=== PATIENT | female | born 1975 | race Caucasian/White ===

== ENCOUNTER 2016-12-15 15:53 | Emergency (ER) | payer BC ==
[2016-12-15 17:08] VITALS: BP 156/98
--- NOTE | 2016-12-15 17:19 | UC ---
Lower Extremity/Ankle HPI - HPI Summary HPI Summary: son stepped on here right foot yesterday - History of Current Complaint Chief Complaint: UCLowerExtremity Stated Complaint: RT FOOT INJURY Time Seen by Provider: 12/15/16 17:13 Hx Obtained From: Patient Hx Last Menstrual Period: november ?: No Onset/Duration: Sudden Onset, Lasting Days - 1, Still Present Severity Initially: Moderate Severity Currently: Moderate Pain Intensity: 6 Pain Scale Used: 0-10 Numeric Aggravating Factor(s): Standing, Ambulation Alleviating Factor(s): Rest, Elevation Able to Bear Weight: Yes - Allergies/Home Medications Allergies/Adverse Reactions: Allergies Allergy/AdvReac Type Severity Reaction Status Date / Time Adhesive Tape Allergy Severe Blisters Verified 12/15/16 16:21 Ampicillin Allergy Severe Rash Verified 12/15/16 16:21 Azithromycin Allergy Unknown Unknown Verified 12/15/16 16:21 Reaction Details Latex Allergy Unknown Hives Verified 12/15/16 16:21 Levofloxacin Allergy Unknown Hives Verified 12/15/16 16:21 Penicillins Allergy Unknown Unknown Verified 12/15/16 16:21 Reaction Details Chlorhexidine Allergy Blisters Verified 12/15/16 16:21 CHLOROPREP Allergy Severe Blisters Uncoded 12/15/16 16:21 Home Medications: Home Medications Levothyroxine Sodium [Levoxyl] 75 mcg PO 12/15/16 [History] PMH/Surg Hx/FS Hx/Imm Hx Previously Healthy: No Endocrine History Of: Reports: Thyroid Disease Denies: Diabetes Cardiovascular History Of: Denies: Hypertension, Pacemaker/ICD Respiratory History Of: Reports: Asthma - SEASONAL GI/ History Of: Denies: Ulcer - Surgical History Surgical History: Yes Surgery Procedure, Year, and Place: RIGHT CHEST PORT, , KNEE SURGERY, FOOT SURGERY A CHILD - Family History Known Family History: Positive: None Family History: no reported cardiovascular issues in family lineage - Social History Occupation: Employed Full-time Lives: With Family Alcohol Use: None Substance Use Type: None Smoking Status (MU): Never Smoked Tobacco Review of Systems Constitutional: Negative Skin: Negative Eyes: Negative ENT: Negative Respiratory: Negative Cardiovascular: Negative Gastrointestinal: Negative Genitourinary: Negative Motor: Negative Neurovascular: Negative Musculoskeletal: Negative, Arthralgia - medial right foot Neurological: Negative Psychological: Negative All Other Systems Reviewed And Are Negative: Yes Physical Exam Triage Information Reviewed: Yes Appearance: Well-Appearing, No Pain Distress, Obese Vital Signs: Initial Vital Signs Temp 97.6 F 12/15/16 16:07 Pulse 95 12/15/16 16:07 Resp 16 12/15/16 16:07 BP 156/117 12/15/16 16:07 Pulse Ox 98 12/15/16 16:07 Vital Signs Reviewed: Yes Eye Exam: Normal Eyes: Positive: Conjunctiva Clear ENT Exam: Normal ENT: Positive: Normal ENT inspection, Hearing grossly normal. Negative: Trismus , Muffled/hoarse voice Dental Exam: Normal Neck exam: Normal Neck: Positive: Supple, Nontender Respiratory Exam: Normal Respiratory: Positive: Chest non-tender, No respiratory distress, No accessory muscle use Cardiovascular Exam: Normal Cardiovascular: Positive: RRR, Pulses Normal, Brisk Capillary Refill Musculoskeletal Exam: Normal Musculoskeletal: Positive: Strength Intact, ROM Intact, No Edema Neurological Exam: Normal Neurological: Positive: Alert, Muscle Tone Normal, Fatigued Psychological Exam: Normal Skin Exam: Normal Diagnostics - Radiology No standard instances Xray Interpretation: No Acute Changes Radiology Interpretation Completed By: Radiologist Lower Extremity Course/Dx - Course Course Of Treatment: post op shoe/cam boot for comfort, jorge luis, rice, ibuprofen, follow with ortho mid next week - Differential Dx/Diagnosis Differential Diagnosis/HQI/PQRI: Arthritis, Contusion, Fracture (Closed), Sprain , Strain Provider Diagnoses: Contusion right foot Discharge - Discharge Plan Condition: Stable Disposition: HOME Patient Education Materials: Ibuprofen (By mouth), Foot Contusion (ED), DASH Eating Plan (ED), Hypertension (ED), RICE Therapy (ED) Referrals: Geneva Villanueva MD [Primary Care Provider] - 2 Weeks (bp recheck) Radha Kraft MD [Medical Doctor] - 1 Week
--- NOTE | 2016-12-15 17:50 | RAD ---
HISTORY: Left, COMPARISONS: October 17, 2011 VIEWS: 3, Frontal, lateral, and oblique views of the right foot FINDINGS: BONE DENSITY: Normal. BONES: There is no displaced fracture. There are small calcaneal enthesophytes. There is a stable bone island of the fifth metatarsal. JOINTS: There is no arthropathy. ALIGNMENT: There is no dislocation. SOFT TISSUES: There is soft tissue swelling of the dorsum of the midfoot OTHER FINDINGS: None. IMPRESSION: SOFT TISSUE SWELLING. NO ACUTE OSSEOUS INJURY. IF SYMPTOMS PERSIST, RECOMMEND REPEAT IMAGING.
== END 2016-12-15 18:20 | disposition home or self-care (01) ==
LOC: UCEAST 15:53
DX: S90.31XA Contusion of right foot, initial encounter (principal); E07.9 Disorder of thyroid, unspecified; I10 Essential (primary) hypertension; J45.998 Other asthma; Z88.0 Allergy status to penicillin; Z88.3 Allergy status to other anti-infective agents; Z91.040 Latex allergy status; Z95.810 Presence of automatic (implantable) cardiac defibrillator; W50.0XXA Accidental hit or strike by another person, initial encounter
CPT/HCPCS: 99212; G0463

== ENCOUNTER 2017-03-04 19:37 | Emergency (ER) | payer BC ==
[2017-03-04] MEDS ORDERED: methylPREDNISolone 125 MG* 2 ML VIAL IV ONE (20:06)
[2017-03-04] MEDS ORDERED: Albuterol/Ipratropium NEB.SOL* Albuterol 2.5 MG/Ipratropium 0.5 MG 3 ML INH ONE ×3 (20:06→20:45)
[2017-03-04 20:25] LABS: Hematocrit 40 % (35-47); Hemoglobin 12.2 g/dl (12.0-16.0); Mean Corpuscular HGB Conc 31 g/dl (31-36); Mean Corpuscular Hemoglobin 26 pg (27-31); Mean Corpuscular Volume 83 fL (80-97); Mean Platelet Volume 9 um3 (7.4-10.4); Red Blood Count 4.79 10^6/ul (4.0-5.4); Red Cell Distribution Width 18 % (10.5-15); White Blood Count 15.1 10^3/ul (3.5-10.8)
[2017-03-04 20:27] LABS: Comments Flag Yes
[2017-03-04] MEDS ORDERED: Albuterol/Ipratropium NEB.SOL* Albuterol 2.5 MG/Ipratropium 0.5 MG 3 ML ONE ×2 (20:39→20:42)
[2017-03-04 20:40] LABS: ALT 24 U/L (7-52); AST 15 U/L (13-39); Albumin 3.8 g/dL (3.2-5.2); Alkaline Phosphatase 92 U/L (34-104); Anion Gap 7 mmol/L (2-11); BUN/Creatinine Ratio 26.6 (8-20); Blood Urea Nitrogen 17 mg/dL (6-24); C Reactive Protein 49.83 mg/L (< 5.00); CO2 Carbon Dioxide 27 mmol/L (22-32); Calcium 9.1 mg/dL (8.6-10.3); Chloride 103 mmol/L (101-111); Creatine Kinase 15 U/L (10-223); EGFR African American 130.2 (>60); EGFR Non-African American 101.3 (>60); Globulin 3.5 g/dL (2-4); Glucose 137 mg/dL (70-100); Lipase 13 U/L (11.0-82.0); Magnesium 1.9 mg/dL (1.9-2.7); Potassium 3.8 mmol/L (3.5-5.0); Sodium 137 mmol/L (133-145); Total Protein 7.3 g/dL (6.4-8.9)
[2017-03-04 20:44] LABS: Troponin I 0.01 ng/mL (<0.04)
--- NOTE | 2017-03-04 21:04 | RAD ---
INDICATION: Shortness of breath and cough. COMPARISON: Most recent comparison chest x-rays dated February 21, 2013 TECHNIQUE: Single AP portable view of the chest was obtained. FINDINGS: Image quality is compromised due to the relative inferiority of a portable chest x-ray. There is a right subclavian vein Mediport with the tip terminating at the upper SVC similar to the previous chest x-ray. The heart and mediastinum exhibit normal size and contour. The lungs are grossly clear. There is no evidence of a large pleural effusion. Visualized bones are normal for the patient's age. IMPRESSION: No radiographic evidence for acute cardiopulmonary abnormality on this portable chest x-ray.
[2017-03-04 21:12] LABS: TSH (Thyroid Stimulating Horm) 4.24 mcIU/mL (0.34-5.60)
--- NOTE | 2017-03-04 22:44 | ED ---
Johanne Vogt Edward, scribed for Tod Shanks MD on 03/04/17 at 2007 . Shortness of Breath - HPI Summary HPI Summary: 41 y/o female presents to ED c/o SOB starting Sunday afternoon. Patient describes SOB as orthopnea aggravated by coughing. Associated sx: productive cough (pale yellow colored mucous), dyspnea, one low grade fever on Sunday (99.8 ), and chronic bilateral ankle edema. Denies CP, leg pain, bodily aches, diarrhea, N/V, and trouble urinating/defecating. PMHx PNA , bronchitis and seasonal asthma. No PMHx of COPD, blood clots or DM. Patient states she gets sick like this a couple of times a year. - History of Current Complaint Chief Complaint: EDShortnessOfBreath Time Seen by Provider: 03/04/17 19:55 Hx Obtained From: Patient Onset/Duration: Lasting Days - Since Sunday afternoon, Still Present Current Severity: Moderate Dyspnea At: Orthopena Aggrevating Factors: Nothing - Laying down Associated Signs & Symptoms: Cough (Productive) - Produces light yellow mucous, Fever - 1 low grade fever, Edema - Chronic bilateral ankle swelling Related History: Obesity - Allergy/Home Medications Allergies/Adverse Reactions: Allergies Allergy/AdvReac Type Severity Reaction Status Date / Time Adhesive Tape Allergy Severe Blisters Verified 03/04/17 19:38 Ampicillin Allergy Severe Rash Verified 03/04/17 19:38 Azithromycin Allergy Unknown Unknown Verified 03/04/17 19:38 Reaction Details Latex Allergy Unknown Hives Verified 03/04/17 19:38 Levofloxacin Allergy Unknown Hives Verified 03/04/17 19:38 Penicillins Allergy Unknown Unknown Verified 03/04/17 19:38 Reaction Details Chlorhexidine Allergy Blisters Verified 03/04/17 19:38 CHLOROPREP Allergy Severe Blisters Uncoded 03/04/17 19:38 PMH/Surg Hx/FS Hx/Imm Hx Previously Healthy: No Endocrine/Hematology History: Reports: Hx Thyroid Disease Denies: Hx Diabetes Cardiovascular History: Denies: Hx Hypertension, Hx Pacemaker/ICD Respiratory History: Reports: Hx Asthma - SEASONAL, Hx Chronic Bronchitis Denies: Hx Chronic Obstructive Pulmonary Disease (COPD) GI History: Denies: Hx Ulcer Sensory History: Denies: Hx Hearing Aid Psychiatric History: Denies: Hx Panic Disorder - Surgical History Surgery Procedure, Year, and Place: RIGHT CHEST PORT, , KNEE SURGERY, FOOT SURGERY A CHILD - Immunization History Date of Tetanus Vaccine: unknown Date of Influenza Vaccine: 2014 Infectious Disease History: No Infectious Disease History: Denies: Hx Clostridium Difficile, Hx Hepatitis, Hx Human Immunodeficiency Virus (HIV), Hx of Known/Suspected MRSA, Hx Shingles, Hx Tuberculosis, Hx Known/ Suspected VRE, Hx Known/Suspected VRSA, History Other Infectious Disease, Traveled Outside the [place] in Last 30 Days - Family History Family History: no reported cardiovascular issues in family lineage - Social History Alcohol Use: None Substance Use Type: Reports: None Smoking Status (MU): Never Smoked Tobacco Review of Systems Positive: Fever - 1 low grade fever on Sunday afternoon (99.8) Eyes: Negative ENT: Negative Cardiovascular: Negative Negative: Chest Pain Positive: Shortness Of Breath, Cough - Productive - light yellow Gastrointestinal: Negative Positive: Other - No trouble defecating. Negative: Vomiting, Diarrhea, Nausea Genitourinary: Negative Positive: other - No trouble urinating. Negative: dysuria Positive: Edema - Chronic bilateral ankle edema (per nurse) Skin: Negative Neurological: Negative Psychological: Normal All Other Systems Reviewed And Are Negative: Yes Physical Exam Triage Information Reviewed: Yes Vital Signs On Initial Exam: Initial Vitals Temp Pulse Resp BP Pulse Ox 97.4 F 100 20 189/90 95 03/04/17 19:39 03/04/17 19:39 03/04/17 19:39 03/04/17 19:39 03/04/17 19:39 Vital Signs Reviewed: Yes Appearance: Positive: No Pain Distress, Ill-Appearing - Mildly ill-appearing Skin: Positive: Warm, Skin Color Reflects Adequate Perfusion, Dry Head/Face: Positive: Normal Head/Face Inspection Eyes: Positive: Normal, EOMI, DONNIE ENT: Positive: Normal ENT inspection Neck: Positive: Supple, Nontender Respiratory/Lung Sounds: Positive: Breath Sounds Present, Rhonchi - Mild bilateral rhonchi, Other - Mild respiratory distress Cardiovascular: Positive: RRR Abdomen Description: Positive: Nontender, Soft Bowel Sounds: Positive: Present Musculoskeletal: Positive: Normal, Strength/ROM Intact Neurological: Positive: Normal, Sensory/Motor Intact, Alert, Oriented to Person Place, Time Psychiatric: Positive: Normal, Affect/Mood Appropriate Diagnostics - Vital Signs Vital Signs Temp Pulse Resp BP Pulse Ox 03/04/17 19:39 97.4 F 100 20 189/90 95 - Laboratory Lab Results: Lab Results 03/04/17 03/04/17 03/04/17 Range/Units 20:20 20:20 20:20 WBC 15.1 H (3.5-10.8) 10^3/ul RBC 4.79 (4.0-5.4) 10^6/ul Hgb 12.2 (12.0-16.0) g/dl Hct 40 (35-47) % MCV 83 (80-97) fL MCH 26 L (27-31) pg MCHC 31 (31-36) g/dl RDW 18 H (10.5-15) % Plt Count 198 (150-450) 10^3/ul MPV 9 (7.4-10.4) um3 Neut % (Auto) 87.9 H (38-83) % Lymph % (Auto) 6.2 L (25-47) % Davis % (Auto) 4.5 (1-9) % Eos % (Auto) 0.5 (0-6) % Baso % (Auto) 0.9 (0-2) % Absolute Neuts (auto) 13.3 H (1.5-7.7) 10^3/ul Absolute Lymphs (auto) 0.9 L (1.0-4.8) 10^3/ul Absolute Monos (auto) 0.7 (0-0.8) 10^3/ul Absolute Eos (auto) 0.1 (0-0.6) 10^3/ul Absolute Basos (auto) 0.1 (0-0.2) 10^3/ul Absolute Nucleated RBC 0.01 10^3/ul Nucleated RBC % 0.1 INR (Anticoag Therapy) 1.03 (0.89-1.11) APTT 30.3 (26.0-36.3) seconds D-Dimer, Quantitative 203 (Less Than 230) ng/mL Sodium 137 (133-145) mmol/L Potassium 3.8 (3.5-5.0) mmol/L Chloride 103 (101-111) mmol/L Carbon Dioxide 27 (22-32) mmol/L Anion Gap 7 (2-11) mmol/L BUN 17 (6-24) mg/dL Creatinine 0.64 (0.51-0.95) mg/dL Est GFR ( Amer) 130.2 (>60) Est GFR (Non-Af Amer) 101.3 (>60) BUN/Creatinine Ratio 26.6 H (8-20) Glucose 137 H (70-100) mg/dL Lactic Acid (0.5-2.0) mmol/L Calcium 9.1 (8.6-10.3) mg/dL Magnesium 1.9 (1.9-2.7) mg/dL Total Bilirubin 0.40 (0.2-1.0) mg/dL AST 15 (13-39) U/L ALT 24 (7-52) U/L Alkaline Phosphatase 92 (34-104) U/L Total Creatine Kinase 15 (10-223) U/L CK-MB (CK-2) 1.5 (0.6-6.3) ng/mL Troponin I 0.01 (<0.04) ng/mL C-Reactive Protein 49.83 H (< 5.00) mg/L B-Natriuretic Peptide ( - 100) pg/mL Total Protein 7.3 (6.4-8.9) g/dL Albumin 3.8 (3.2-5.2) g/dL Globulin 3.5 (2-4) g/dL Albumin/Globulin Ratio 1.1 (1-3) Lipase 13 (11.0-82.0) U/L TSH 4.24 (0.34-5.60) mcIU/mL Beta HCG, Quant < 0.60 mIU/mL 03/04/17 03/04/17 Range/Units 20:20 20:20 WBC (3.5-10.8) 10^3/ul RBC (4.0-5.4) 10^6/ul Hgb (12.0-16.0) g/dl Hct (35-47) % MCV (80-97) fL MCH (27-31) pg MCHC (31-36) g/dl RDW (10.5-15) % Plt Count (150-450) 10^3/ul MPV (7.4-10.4) um3 Neut % (Auto) (38-83) % Lymph % (Auto) (25-47) % Davis % (Auto) (1-9) % Eos % (Auto) (0-6) % Baso % (Auto) (0-2) % Absolute Neuts (auto) (1.5-7.7) 10^3/ul Absolute Lymphs (auto) (1.0-4.8) 10^3/ul Absolute Monos (auto) (0-0.8) 10^3/ul Absolute Eos (auto) (0-0.6) 10^3/ul Absolute Basos (auto) (0-0.2) 10^3/ul Absolute Nucleated RBC 10^3/ul Nucleated RBC % INR (Anticoag Therapy) (0.89-1.11) APTT (26.0-36.3) seconds D-Dimer, Quantitative (Less Than 230) ng/mL Sodium (133-145) mmol/L Potassium (3.5-5.0) mmol/L Chloride (101-111) mmol/L Carbon Dioxide (22-32) mmol/L Anion Gap (2-11) mmol/L BUN (6-24) mg/dL Creatinine (0.51-0.95) mg/dL Est GFR ( Amer) (>60) Est GFR (Non-Af Amer) (>60) BUN/Creatinine Ratio (8-20) Glucose (70-100) mg/dL Lactic Acid 1.0 (0.5-2.0) mmol/L Calcium (8.6-10.3) mg/dL Magnesium (1.9-2.7) mg/dL Total Bilirubin (0.2-1.0) mg/dL AST (13-39) U/L ALT (7-52) U/L Alkaline Phosphatase (34-104) U/L Total Creatine Kinase (10-223) U/L CK-MB (CK-2) (0.6-6.3) ng/mL Troponin I (<0.04) ng/mL C-Reactive Protein (< 5.00) mg/L B-Natriuretic Peptide 53 ( - 100) pg/mL Total Protein (6.4-8.9) g/dL Albumin (3.2-5.2) g/dL Globulin (2-4) g/dL Albumin/Globulin Ratio (1-3) Lipase (11.0-82.0) U/L TSH (0.34-5.60) mcIU/mL Beta HCG, Quant mIU/mL Result Diagrams: 03/04/17 20:20 03/04/17 20:20 Lab Statement: Any lab studies that have been ordered have been reviewed, and results considered in the medical decision making process. - Radiology CHEST XRAY Xray Interpretation: No Acute Changes - No radiographic evidence for acute cardiopulmonary abnormality on this portable chest x-ray. Radiology Interpretation Completed By: Radiologist - EKG 1 EKG Interpretation: NSR @ 93 bpm. RBBB, normal ST elevations, no ectopy Course/Dx - Course Course Of Treatment: NO CRITICAL CARE TIME. IMPROVED IN ED. PATIENT SEEN BY HOSPITALIST. O2 SATS 91-92% RA WITH AMBULATION. DISCUSSED ADMISSION VERSES HOME TREATMENT. AT THIS TIME PATIENT PREFERS TO CONTINUE TREATMENT AT HOME AND F/U WITH PMD. DISCHARGE HOME STABLE. - Diagnoses Provider Diagnoses: Asthma, Bronchitis Discharge - Discharge Plan Condition: Stable Disposition: HOME Patient Education Materials: Acute Bronchitis (ED), Asthma (ED) Referrals: Geneva Villanueva MD [Primary Care Provider] - Additional Instructions: FOLLOW UP WITH YOUR DOCTOR. USE YOUR NEBULIZER EVERY 4 HOURS NEEDED. RETURN TO THE EMERGENCY DEPARTMENT FOR ANY WORSENING OF YOUR CONDITION; SHORTNESS OF BREATH, YOU FEEL ILL OR QUESTIONS OR CONCERNS. The documentation as recorded by the Johanne garibay Edward accurately reflects the service I personally performed and the decisions made by me, Tod Shanks MD.
[2017-03-04 22:54] VITALS: BP 166/100
--- NOTE | 2017-03-05 03:44 | CONS ---
CC: Geneva Villanueva M.D. * CONSULTATION NOTE: DATE OF CONSULTATION: 03/04/17 - EMERGENCY DEPT TIME OF EVALUATION: 2200. PRIMARY CARE PHYSICIAN: Geneva Villanueva M.D. REASON FOR CONSULTATION: Evaluation for admission. CHIEF COMPLAINT: Shortness of breath. HISTORY OF PRESENT ILLNESS: This is a 41-year-old female with a past medical history of morbid obesity, reactive airway disease and iron deficiency anemia, who gets transfused every six to eight weeks who presented to the emergency room with worsening cough and shortness of breath. The patient states she was fine at work on Sunday and her illness came all of the sudden after work on . She states when she gets the viral illness, she often needs steroids, inhalers and antibiotics. At that time, she called her primary care physician, who called in as mentioned antibiotics, steroids, nebulizers and inhalers. She feels worse today with her coughing and shortness of breath and came to the emergency room for further evaluation. She states that regarding her nebulizer, she has been using it only three times a day. She was told not to use it more than that and she was not having spacer with her inhaler. She denies any rash. No chest pain. No Nausea, vomiting or diarrhea. No lower extremity swelling. Otherwise remainder of the review of the systems is negative. In the emergency room, the patient had labs and imaging. She was given three nebulizer treatments, Solu-Medrol 125 mg and was referred to the hospitalist service on my evaluation. The patient states she feels better, but she was frightened about how sick she was earlier in the evening. PAST MEDICAL HISTORY: 1. Iron deficiency anemia with port placement for transfusion every six to eight weeks. 2. Reactive airway disease. 3. Migraines. 4. GERD. 5. Hypothyroidism. MEDICATIONS: 1. Topamax 250 mg daily at bedtime. 2. Omeprazole 20 mg p.o. daily. 3. Levothyroxine 75 mg daily. 4. Ceftin. 5. Prednisone taper. 6. Albuterol nebulizer and albuterol inhaler. ALLERGIES: ADHESIVE TAPE, AMPICILLIN, AZITHROMYCIN, LATEX, LEVOFLOXACIN, PENICILLIN, CHLORHEXIDINE, CHLORAPREP. SOCIAL HISTORY: The patient lives at home with her and small children. No history of smoking. Occasional alcohol use. 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 CODE STATUS: Full code. Her health proxy is her , Royal Almodovar. FAMILY HISTORY: Her mother is alive and was recently diagnosed with COPD. She is a heavy smoker. Sister has reactive airway disease as well. REVIEW OF SYSTEMS: As mentioned in the HPI. PHYSICAL EXAMINATION: GENERAL: In no acute distress, resting comfortably with her at the bedside. VITAL SIGNS: Temp 98, pulse rate 88, oxygen saturation 94% on room air, respiratory rate 18, blood pressure 166/100. HEENT: Pupils are equal, and reactive. Anicteric. Head is normocephalic. Oropharynx: Mucous membranes moist. Some injected posterior oropharynx. No exudate. NECK: Supple. No lymphadenopathy. No nuchal rigidity. RESPIRATORY: Bilateral fine expiratory wheezing. No tachypnea or increased work of breathing or retraction. CARDIAC: Regular rate and rhythm. No murmurs, rubs, or gallops. ABDOMEN: Morbidly obese. EXTREMITIES: No clubbing, cyanosis or edema. +2 DPs. NEUROLOGIC: No focal neurologic deficits. LABORATORY DATA: White count 15.1, hemoglobin 12.2, hematocrit 40, and platelets 198. INR is 1. PTT 30. D-dimer is 203. Sodium 137, potassium 3.8, chloride 103, bicarb 27, BUN 17, and creatinine 0.64. Glucose 137. CRP is 50. BMP is 53. Beta- HCG is less than 6. RADIOGRAPHIC STUDIES: Chest x-ray : No radiographic evidence for acute pulmonary abnormality on this portable chest x-ray. EKG: Normal sinus rhythm. ASSESSMENT: This is a 41-year-old female with a past medical history of reactive airway disease and morbidly obese, who presents to the emergency room with worsening cough and shortness of breath. Cough and shortness of breath. Assessment: The patient appears to have reactive airway disease in the setting of viral upper respiratory tract infection. I suspect her white count is secondary to recent start of the steroid use. We discussed at length that she is now satting in the mid 90s. Her heart rate is in the 80s and she is moving air well and I think that she could be managed at home with starting to use a spacer with her inhaler using albuterol nebulizer every four hours scheduled and then every two hours as needed. If there are no improvements at the 2-hour dirk, to come back to the emergency room. The patient is hesitant to come in and would like to be managed at home. The plan is to road-test her to make sure she is satting okay ambulating and reassess after that. I agree with continuing her on antibiotics. I discussed that she probably needs a longer prednisone taper and to follow up with her primary tomorrow and if she does have any worsening shortness of breath, she was to return to the emergency room. I spoke with Dr. Shanks who is agreeable to my recommendation. The patient is going to be discharged home. PATIENT TIME: Greater than 60 minutes was spent doing the consultation, more than half the time was spent in direct patient contact. [id number]/[facility] #: [id number] ROSIE
== END 2017-03-04 22:53 | disposition home or self-care (01) ==
LOC: ED 19:37
DX: J45.998 Other asthma (principal); R06.02 Shortness of breath; R05 Cough
CPT/HCPCS: 36415; 71010; 80053; 82550; 82553; 83605; 83690; 83735; 83880; 84443; 84484; 84702; 85025; 85379; 85610; 85730; 86140; 93005; 94640; 99284; A9270-GY; J2930

== ENCOUNTER 2017-07-07 16:10 | Emergency (ER) | payer BC ==
[2017-07-07 16:33] VITALS: BP 154/91
[2017-07-08 13:57] LABS: Hematocrit 41 % (35-47); Mean Corpuscular HGB Conc 32 g/dl (31-36); Mean Corpuscular Hemoglobin 26 pg (27-31); Mean Corpuscular Volume 82 fL (80-97); Mean Platelet Volume 10 um3 (7.4-10.4); Red Blood Count 5.05 10^6/ul (4.0-5.4); Red Cell Distribution Width 20 % (10.5-15); White Blood Count 16.4 10^3/ul (3.5-10.8)
[2017-07-08 14:43] LABS: Albumin 4.1 g/dL (3.2-5.2); BUN/Creatinine Ratio 22.6 (8-20); EGFR African American 94.7 (>60); EGFR Non-African American 73.7 (>60); Globulin 2.7 g/dL (2-4); Potassium 3.8 mmol/L (3.5-5.0); Total Bilirubin 0.4 mg/dL (0.2-1.0); Total Protein 6.8 g/dL (6.4-8.9)
--- NOTE | 2017-07-08 19:53 | UC ---
Progress - Progress Note Progress Note: Reviewed labs, showing a high white blood count. There is NOT a document in draft or completed. Being treated with doxy for suspected Lyme disease. Please call to advise of high white count, which does not give a cause of infection. I assume that Lyme serology is pending. Is there a way to let Dr. Ngo know that the labs are missing.
--- NOTE | 2017-07-10 17:12 | UC ---
Progress - Progress Note Progress Note: Reviewed labs, showing a high white blood count. There is NOT a document in draft or completed. Being treated with doxy for suspected Lyme disease. Please call to advise of high white count, which does not give a cause of infection. I assume that Lyme serology is pending. Is there a way to let Dr. Ngo know that the labs are missing. 07/10/17 lyme (-), if worse er.
--- NOTE | 2017-07-11 16:32 | ED ---
Skin Complaint - HPI Summary HPI Summary: 42 year old female presents with complains of possible insect o her elbow and back. - History of Current Complaint Chief Complaint: UCRash Stated Complaint: RASH Hx Obtained From: Patient Hx Last Menstrual Period: 06/22/17 Onset/Duration: Started Minutes Ago Timing: Constant Onset Severity: Moderate Current Severity: Moderate Pain Intensity: 6 Pain Scale Used: 0-10 Numeric - Allergy/Home Medications Allergies/Adverse Reactions: Allergies Allergy/AdvReac Type Severity Reaction Status Date / Time Adhesive Tape Allergy Severe Blisters Verified 07/07/17 16:33 Ampicillin Allergy Severe Rash Verified 07/07/17 16:33 Azithromycin Allergy Unknown Unknown Verified 07/07/17 16:33 Reaction Details Latex Allergy Unknown Hives Verified 07/07/17 16:33 Levofloxacin Allergy Unknown Hives Verified 07/07/17 16:33 Penicillins Allergy Unknown Unknown Verified 07/07/17 16:33 Reaction Details Chlorhexidine Allergy Blisters Verified 07/07/17 16:33 CHLOROPREP Allergy Severe Blisters Uncoded 07/07/17 16:33 PMH/Surg Hx/FS Hx/Imm Hx Previously Healthy: Yes Endocrine/Hematology History: Reports: Hx Thyroid Disease Denies: Hx Diabetes Cardiovascular History: Denies: Hx Hypertension, Hx Pacemaker/ICD Respiratory History: Reports: Hx Asthma - SEASONAL, Hx Chronic Bronchitis Denies: Hx Chronic Obstructive Pulmonary Disease (COPD) GI History: Denies: Hx Ulcer Sensory History: Denies: Hx Hearing Aid Psychiatric History: Denies: Hx Panic Disorder - Surgical History Surgery Procedure, Year, and Place: RIGHT CHEST PORT, , KNEE SURGERY, FOOT SURGERY A CHILD - Immunization History Date of Tetanus Vaccine: unknown Date of Influenza Vaccine: 2014 Infectious Disease History: No Infectious Disease History: Denies: Hx Clostridium Difficile, Hx Hepatitis, Hx Human Immunodeficiency Virus (HIV), Hx of Known/Suspected MRSA, Hx Shingles, Hx Tuberculosis, Hx Known/ Suspected VRE, Hx Known/Suspected VRSA, History Other Infectious Disease, Traveled Outside the [place] in Last 30 Days - Family History Known Family History: Positive: None Family History: no reported cardiovascular issues in family lineage - Social History Alcohol Use: None Substance Use Type: Reports: None Smoking Status (MU): Never Smoked Tobacco Review of Systems Constitutional: Negative Eyes: Negative ENT: Negative Cardiovascular: Negative Respiratory: Negative Gastrointestinal: Negative Genitourinary: Negative Musculoskeletal: Negative Positive: Other - mutiple insect/tick bites, rash Neurological: Negative Psychological: Normal All Other Systems Reviewed And Are Negative: Yes Physical Exam Triage Information Reviewed: Yes Vital Signs On Initial Exam: Initial Vitals Temp Pulse Resp BP Pulse Ox 36.4 C 109 18 154/91 98 07/07/17 16:27 07/07/17 16:27 07/07/17 16:27 07/07/17 16:27 07/07/17 16:27 Vital Signs Reviewed: Yes Appearance: Positive: Well-Appearing Skin: Positive: Other - rash Diagnostics - Vital Signs Vital Signs Temp Pulse Resp BP Pulse Ox 07/07/17 16:27 36.4 C 109 18 154/91 98 - Laboratory Lab Results: Lab Results 07/07/17 07/07/17 07/07/17 Range/Units 17:20 17:20 17:20 WBC 16.4 H (3.5-10.8) 10^3/ul RBC 5.05 (4.0-5.4) 10^6/ul Hgb 13.0 (12.0-16.0) g/dl Hct 41 (35-47) % MCV 82 (80-97) fL MCH 26 L (27-31) pg MCHC 32 (31-36) g/dl RDW 20 H (10.5-15) % Plt Count 238 (150-450) 10^3/ul MPV 10 (7.4-10.4) um3 Neut % (Auto) 86.2 H (38-83) % Lymph % (Auto) 6.8 L (25-47) % Wythe % (Auto) 5.3 (1-9) % Eos % (Auto) 1.0 (0-6) % Baso % (Auto) 0.7 (0-2) % Absolute Neuts (auto) 14.1 H (1.5-7.7) 10^3/ul Absolute Lymphs (auto) 1.1 (1.0-4.8) 10^3/ul Absolute Monos (auto) 0.9 H (0-0.8) 10^3/ul Absolute Eos (auto) 0.2 (0-0.6) 10^3/ul Absolute Basos (auto) 0.1 (0-0.2) 10^3/ul Absolute Nucleated RBC 0.02 10^3/ul Nucleated RBC % 0.1 Sodium 138 (133-145) mmol/L Potassium 3.8 (3.5-5.0) mmol/L Chloride 104 (101-111) mmol/L Carbon Dioxide 26 (22-32) mmol/L Anion Gap 8 (2-11) mmol/L BUN 19 (6-24) mg/dL Creatinine 0.84 (0.51-0.95) mg/dL Est GFR ( Amer) 94.7 (>60) Est GFR (Non-Af Amer) 73.7 (>60) BUN/Creatinine Ratio 22.6 H (8-20) Glucose 169 H (70-100) mg/dL Calcium 9.0 (8.6-10.3) mg/dL Total Bilirubin 0.40 (0.2-1.0) mg/dL AST 23 (13-39) U/L ALT 25 (7-52) U/L Alkaline Phosphatase 93 (34-104) U/L Total Protein 6.8 (6.4-8.9) g/dL Albumin 4.1 (3.2-5.2) g/dL Globulin 2.7 (2-4) g/dL Albumin/Globulin Ratio 1.5 (1-3) Lyme Disease Serology Negative (Negative) Result Diagrams: 07/07/17 17:20 07/07/17 17:20 Lab Statement: Any lab studies that have been ordered have been reviewed, and results considered in the medical decision making process. Course/Dx - Diagnoses Provider Diagnoses: Insect bite, Rash Discharge - Discharge Plan Condition: Stable Disposition: HOME Prescriptions: DOXYcycline CAP(*) [DOXYcycline 100MG CAP(*)] 100 mg PO BID #14 cap Mupirocin 2% OINT* [Bactroban 2 % Oint*] 1 applic TOPICAL BID #1 tube Patient Education Materials: Lyme Disease (ED), Insect Bite or Sting (ED), Tick Bite (ED) Referrals: Geneva Villanueva MD [Primary Care Provider] -
== END 2017-07-07 17:31 | disposition home or self-care (01) ==
LOC: UCEAST 16:10
DX: S50.861A Insect bite (nonvenomous) of right forearm, initial encounter (principal); S30.860A Insect bite (nonvenomous) of lower back and pelvis, initial encounter; W57.XXXA Bitten or stung by nonvenomous insect and other nonvenomous arthropods, initial encounter; Y93.9 Activity, unspecified; Y92.9 Unspecified place or not applicable; E07.9 Disorder of thyroid, unspecified; J45.909 Unspecified asthma, uncomplicated; Z88.1 Allergy status to other antibiotic agents; Z91.040 Latex allergy status; Z88.0 Allergy status to penicillin; Z88.8 Allergy status to other drugs, medicaments and biological substances; Z91.048 Other nonmedicinal substance allergy status
CPT/HCPCS: 36415; 80053; 85025; 86618; 99212; G0463

== ENCOUNTER 2017-10-03 18:00 | Emergency (ER) | payer BC ==
--- NOTE | 2017-10-03 18:56 | ED ---
Lower Extremity - HPI Summary HPI Summary: 42 female presents to ED with complaints of right knee pain and injury that occurred this morning while stepping up a large step. States she stepped and she felt a pop in her right knee and has had significant pain in the "middle of her knee" ever since. Bearing weight and walking makes the pain worse. Patient denies any notable bruising and swelling. No numbness/tingling. Is able to flex and extend however only when non weight bearing, pain worsens with movement when weight bearing. No other injuries or complaints. No other known knee issues with right knee. Took 800mg of ibuprofen around 1pm today nothing else since. No PMHx other than iron deficiency that she receives infusions for regularly. Did not fall or hit head. - History of Current Complaint Chief Complaint: EDExtremityLower Stated Complaint: RIGHT KNEE PAIN Time Seen by Provider: 10/03/17 18:47 Hx Obtained From: Patient Hx Last Menstrual Period: 06/22/17 Mechanism Of Injury: Twisted Onset of Pain: Immediate, Post Accident Onset/Duration: Still Present Severity Initially: Moderate Severity Currently: Severe Pain Intensity: 8 Pain Scale Used: 0-10 Numeric Timing: Constant Location: Is Discrete @ - right knee Character Of Pain: Sharp, Aching - "like it is going to give out" Associated Signs And Symptoms: Positive: Weakness - "feels like it is going to give out", Knee Pain - right Aggravating Factor(s): Standing, Ambulation, Weight Bearing Alleviating Factor(s): Rest Able to Bear Weight: Yes - however causes pain - Allergies/Home Medications Allergies/Adverse Reactions: Allergies Allergy/AdvReac Type Severity Reaction Status Date / Time Adhesive Tape Allergy Severe Blisters Verified 07/07/17 16:33 Ampicillin Allergy Severe Rash Verified 07/07/17 16:33 Azithromycin Allergy Unknown Unknown Verified 07/07/17 16:33 Reaction Details Latex Allergy Unknown Hives Verified 07/07/17 16:33 Levofloxacin Allergy Unknown Hives Verified 07/07/17 16:33 Penicillins Allergy Unknown Unknown Verified 07/07/17 16:33 Reaction Details Chlorhexidine Allergy Blisters Verified 07/07/17 16:33 CHLOROPREP Allergy Severe Blisters Uncoded 07/07/17 16:33 PMH/Surg Hx/FS Hx/Imm Hx Endocrine/Hematology History: Reports: Hx Thyroid Disease, Hx Anemia - iron def Denies: Hx Diabetes Cardiovascular History: Denies: Hx Hypertension, Hx Pacemaker/ICD Respiratory History: Reports: Hx Asthma - SEASONAL, Hx Chronic Bronchitis Denies: Hx Chronic Obstructive Pulmonary Disease (COPD) GI History: Denies: Hx Ulcer Sensory History: Denies: Hx Hearing Aid Psychiatric History: Denies: Hx Panic Disorder - Surgical History Surgery Procedure, Year, and Place: RIGHT CHEST PORT, , KNEE SURGERY, FOOT SURGERY A CHILD - Immunization History Date of Tetanus Vaccine: unknown Date of Influenza Vaccine: 2014 Immunizations Up to Date: Yes Infectious Disease History: No Infectious Disease History: Denies: Hx Clostridium Difficile, Hx Hepatitis, Hx Human Immunodeficiency Virus (HIV), Hx of Known/Suspected MRSA, Hx Shingles, Hx Tuberculosis, Hx Known/ Suspected VRE, Hx Known/Suspected VRSA, History Other Infectious Disease, Traveled Outside the [place] in Last 30 Days - Family History Known Family History: Positive: None Family History: no reported cardiovascular issues in family lineage - Social History Alcohol Use: None Substance Use Type: Reports: None Smoking Status (MU): Never Smoked Tobacco Review of Systems Constitutional: Negative ENT: Negative Cardiovascular: Negative Positive: Arthralgia, Myalgia, Decreased ROM - right knee Skin: Negative Neurological: Negative All Other Systems Reviewed And Are Negative: Yes Physical Exam Triage Information Reviewed: Yes Vital Signs On Initial Exam: Initial Vitals Temp Pulse Resp BP Pulse Ox 96.8 F 96 20 201/128 98 10/03/17 18:03 10/03/17 18:03 10/03/17 18:03 10/03/17 18:03 10/03/17 18:03 elevated BP noted, rechecked to be 171/78. instructed to follow up with PCP within 1-2 weeks for recheck due to elevated pressures. patient is in pain. Vital Signs Reviewed: Yes Appearance: Positive: Well-Appearing, Well-Nourished, Pain Distress - moderate Skin: Positive: Warm, Skin Color Reflects Adequate Perfusion, Dry. Negative: Cold, Cyanosis @, Pale, Erythema @ Eyes: Positive: Conjunctiva Clear ENT: Positive: Hearing grossly normal Respiratory/Lung Sounds: Positive: Clear to Auscultation, Breath Sounds Present. Negative: Rales, Rhonchi, Wheezes Cardiovascular: Positive: Normal, RRR, Pulses are Symmetrical in both Upper and Lower Extremities - 2+ pedal. Negative: Murmur, Rub, Leg Edema Left, Leg Edema Right Musculoskeletal: Positive: Strength/ROM Intact - pain is with weight bearing of right knee, Pain @ - right knee "inside", Other - PE limited due to excess adipose tissue unable to complete laxity testing. Negative: Limited @, Interruption @, Abnormal @, Edema Left, Edema Right Neurological: Positive: Normal, Sensory/Motor Intact, Alert, Oriented to Person Place, Time, NV Bundle Intact Distally, Unable to Assess Gait - due to pain and injury, using crutches Diagnostics - Vital Signs Vital Signs Temp Pulse Resp BP Pulse Ox 10/03/17 18:45 100 96 10/03/17 18:44 188/105 10/03/17 18:03 96.8 F 96 20 201/128 98 - Laboratory Lab Statement: Any lab studies that have been ordered have been reviewed, and results considered in the medical decision making process. - Radiology right knee Xray Interpretation: No Acute Changes - The visualized bones are well- corticated and properly aligned. The joint spaces are properly maintained. There is no radiographic evidence of joint effusion. There is no acute fracture , dislocation or other focal bony abnormality. Radiology Interpretation Completed By: Radiologist - and myself Re-Evaluation - Re-Evaluation First Eval Re-Evaluation Time: 19:35 Change: Improved - BP improving, waiting for medication Lower Extremity Course/Dx - Course Course Of Treatment: given toradol and norco for pain. jorge luis bandage applied. given crutches. xray obtained and negative for disloation/fracture. appears to be a sprain with possible ligament injury. follow up ortho for further eval and imaging. non weight bearing, pain depending, RICE and NSAIDs. no concern for other etiology at this time. Aware of worsening signs and symptoms to watch out for. - Diagnoses Differential Diagnosis/HQI/PQRI: Positive: Dislocation, Fracture (Closed), Sprain, Strain Provider Diagnoses: Right knee sprain Discharge - Discharge Plan Condition: Stable Disposition: HOME Prescriptions: HYDROcodone/ACETAMIN 5-325 MG* [[place] 5-325 TAB*] 1 tab PO Q6H PRN #8 tab MDD 2 PRN Reason: Pain Patient Education Materials: Knee Sprain (ED) Referrals: Geneva Villanueva MD [Primary Care Provider] - Additional Instructions: Apply jorge luis bandage to help with compression and support. Continue taking ibuprofen at home, with food. Take prescribed pain medication only as needed for breakthrough pain. Do not over use knee even if pain is hidden by medication. Rest, elevate, ice. Crutches to stay off knee. Follow up with ortho and pcp. Any new or worsening symptoms please seek medical attention.
--- NOTE | 2017-10-03 19:46 | RAD ---
INDICATION: "Pop" behind right knee when trying to get up COMPARISON: None TECHNIQUE: 4 view radiograph of the right knee. FINDINGS: The visualized bones are well-corticated and properly aligned. The joint spaces are properly maintained. There is no radiographic evidence of joint effusion. There is no acute fracture, dislocation or other focal bony abnormality. IMPRESSION: Normal knee radiograph as described above. If the patient's symptoms persist, follow-up imaging is recommended.
[2017-10-03] MEDS ORDERED: Ketorolac INJ* 30 MG/ML 1 ML VIAL IM ONE (19:49)
[2017-10-03] MEDS ORDERED: HYDROcodone/ACETAMIN 5-325 MG* 1 TAB PO ONE (19:49)
[2017-10-03 21:12] VITALS: BP 174/82
== END 2017-10-03 21:11 | disposition home or self-care (01) ==
LOC: ED 18:00
DX: S83.91XA Sprain of unspecified site of right knee, initial encounter (principal); X50.9XXA Other and unspecified overexertion or strenuous movements or postures, initial encounter; Y92.9 Unspecified place or not applicable; Z87.09 Personal history of other diseases of the respiratory system
CPT/HCPCS: 96372; 99283; J1885

== ENCOUNTER 2017-11-05 16:08 | Inpatient (IN) | payer BC ==
[2017-11-05] MEDS ORDERED: Labetalol IV* 5 MG/ML 20 ML VIAL IV PUSH ONE (17:48)
--- NOTE | 2017-11-05 18:05 | RAD ---
INDICATION: Short of breath. Chest pain. COMPARISON: March 04, 2017 TECHNIQUE: An AP portable view obtained at 1740 hours is submitted. FINDINGS: Bones/Soft Tissues: There are no acute bony findings. There is a right-sided [id number] catheter terminating in the superior vena cava Cardiomediastinal: The cardiac silhouette is enlarged. Lungs: There are no infiltrates. Pleura: There are no pleural effusions. Other: None IMPRESSION: ENLARGED CARDIAC SILHOUETTE. NO ACTIVE DISEASE
[2017-11-05] MEDS: Aspirin Low Dose CHEW TAB* 81 MG PO ONE ×2 (18:40→21:57)
[2017-11-05 18:52] LABS: ABS Basophils 0.2 10^3/ul (0-0.2); ABS Eosinophils 0.3 10^3/ul (0-0.6); ABS Monocytes 0.7 10^3/ul (0-0.8); ABS Neutrophils 8.3 10^3/ul (1.5-7.7); ABS Nucleated RBC 0 10^3/ul; Hematocrit 37 % (35-47); Hemoglobin 11.4 g/dl (12.0-16.0); Lymphocyte % 9.3 % (25-47); Mean Corpuscular HGB Conc 31 g/dl (31-36); Mean Corpuscular Hemoglobin 24 pg (27-31); Mean Corpuscular Volume 76 fL (80-97); Mean Platelet Volume 8 um3 (7.4-10.4); Nucleated Red Blood Cells % 0.1; Platelet Count 224 10^3/ul (150-450); Red Blood Count 4.79 10^6/ul (4.0-5.4); Red Cell Distribution Width 18 % (10.5-15); White Blood Count 10.4 10^3/ul (3.5-10.8)
[2017-11-05] MEDS ORDERED: Ondansetron INJ* 2 MG/ML VIAL ONE (18:53)
[2017-11-05] MEDS ORDERED: Ondansetron INJ* 2 MG/ML VIAL IV ONE (18:55)
[2017-11-05 19:08] LABS: INR 0.98 (0.77-1.02)
[2017-11-05 19:19] LABS: EGFR Non-African American 104.6 (>60)
[2017-11-05] MEDS ORDERED: Albuterol/Ipratropium NEB.SOL* Albuterol 2.5 MG/Ipratropium 0.5 MG 3 ML INH ONE (19:22)
[2017-11-05] MEDS ORDERED: Iohexol 350* (CONTRAST) 500 ML MDV IV ONE (19:39)
--- NOTE | 2017-11-05 19:49 | ED ---
Bakari Vogt Tiffany, scribed for Donya Ballesteros MD on 11/05/17 at 1809 . Respiratory - HPI Summary HPI Summary: The patient is a 42 year old F [place] [facility] by with a chief complaint of respiratory distress and chest pain since 17:00 today. The patient rates the pain 8/10 in severity. Symptoms aggravated by nothing. Symptoms alleviated by nothing. Patient reports chest pain, shortness of breath , and productive cough. Patient denies fever. Per EMS O2 sats were in the 70's when they arrived. Pt improved with non rebreather O2. Pt also very HTN for EMS and on arrival [place] [facility] Pt is morbidly obese. Patient's denies patient having pneumonia at the moment. He reports that patient had respiratory illness around August 2017 for which she was on Prednisone and antibiotics. He reports that patient has history of bronchitis and pneumonia. He states that patient took Albuterol last night and prior to arrival. 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 - Onset/Duration: Sudden Onset, Lasting Hours - Since 17:00 today, Still Present Timing: Constant Initial Severity: Severe Current Severity: Moderate Pain Intensity: 8 Character: Cough (Productive), Dyspnea at Rest Sputum Amount: None Aggravating Factor(s): Nothing Alleviating Factor(s): Nothing Associated Signs and Symptoms: Negative - Fever, SOB, Chest Pain - Risk Factors Status Asthmaticus Risk Factors: Recent Steroids - Allergy/Home Medications Allergies/Adverse Reactions: Allergies Allergy/AdvReac Type Severity Reaction Status Date / Time Adhesive Tape Allergy Severe Blisters Verified 07/07/17 16:33 ampicillin Allergy Intermediate Rash Verified 11/05/17 17:55 chlorhexidine Allergy Intermediate Blisters Verified 11/05/17 17:55 latex Allergy Intermediate Hives Verified 11/05/17 17:55 levofloxacin Allergy Intermediate Hives Verified 11/05/17 17:55 azithromycin Allergy Unknown Unknown Verified 11/05/17 17:56 Reaction Details Penicillins Allergy Unknown Unknown Verified 11/05/17 17:55 Reaction Details CHLOROPREP Allergy Severe Blisters Uncoded 07/07/17 16:33 Home Medications: Home Medications Albuterol/Ipratropium NEB.MARIA E* [Duoneb (Albuterol 2.5 MG/Ipratropium 0.5 MG)] 1 neb INH Q6H PRN 11/05/17 [History Confirmed 11/05/17] Ibuprofen TAB* [Motrin TAB* 800 MG] 800 mg PO TID 11/05/17 [History Confirmed ] Levothyroxine TAB* [Synthroid TAB*] 100 mcg PO DAILY 11/05/17 [History Confirmed 11/05/17] Topiramate TAB(*) [Topamax 25 MG tab] 50 mg PO BEDTIME 11/05/17 [History Confirmed 11/05/17] PMH/Surg Hx/FS Hx/Imm Hx Previously Healthy: No Endocrine/Hematology History: Reports: Hx Thyroid Disease, Hx Anemia - iron defic, followed by Dr. Guadalupe , Other Endocrine/Hematological Disorders - morbid obesity Denies: Hx Diabetes Cardiovascular History: Reports: Hx Hypertension Denies: Hx Pacemaker/ICD Respiratory History: Reports: Hx Asthma, Hx Chronic Bronchitis Denies: Hx Chronic Obstructive Pulmonary Disease (COPD) GI History: Denies: Hx Ulcer Sensory History: Denies: Hx Hearing Aid Psychiatric History: Denies: Hx Panic Disorder - Surgical History Surgery Procedure, Year, and Place: RIGHT CHEST PORT, , KNEE SURGERY, FOOT SURGERY A CHILD - Immunization History Date of Tetanus Vaccine: unknown Date of Influenza Vaccine: 2014 Infectious Disease History: No Infectious Disease History: Denies: Hx Clostridium Difficile, Hx Hepatitis, Hx Human Immunodeficiency Virus (HIV), Hx of Known/Suspected MRSA, Hx Shingles, Hx Tuberculosis, Hx Known/ Suspected VRE, Hx Known/Suspected VRSA, History Other Infectious Disease, Traveled Outside the [place] in Last 30 Days - Family History Known Family History: Positive: Cardiac Disease - Mother had cardiac disease; sister had heart attack at 50 Family History: no reported cardiovascular issues in family lineage - Social History Lives: With Family Alcohol Use: None Hx Substance Use: No Substance Use Type: Reports: None Hx Tobacco Use: Yes Smoking Status (MU): Smoker, Current Status Unknown Review of Systems Negative: Fever ENT: Negative Positive: Chest Pain Positive: Shortness Of Breath, Cough - Productive Gastrointestinal: Negative Skin: Negative Neurological: Negative Psychological: Normal All Other Systems Reviewed And Are Negative: Yes Physical Exam - Summary Physical Exam Summary: Appearance: Ill-appearing, moderate pain distress, morbidly obese, on 100% nonrebreather, after desat to 84% in ED after EMS O2 DC'd. Skin: Warm, color reflects adequate perfusion Head: Normal Head/Face inspection Eyes: Conjunctiva clear ENT: Normal inspection Neck: Supple, no nodes, no JVD. Respiratory: decreased breath sounds throughout, no wheezes, mild respiratory distress, can speak short sentences Cardio: RRR, No murmur, pulses normal, brisk capillary refill Abdomen: soft, nontender Bowel sounds: present Musculoskeletal: Strength Intact/ ROM intact. No calf tenderness. No edema. Neuro: Alert, muscle tone normal, facial symmetry, speech normal, sensory/motor intact Psychological: Normal Triage Information Reviewed: Yes Vital Signs On Initial Exam: Initial Vitals Temp Pulse Resp BP Pulse Ox 98.9 F 99 22 180/134 99 11/05/17 16:48 11/05/17 16:48 11/05/17 16:48 11/05/17 16:48 11/05/17 16:48 Vital Signs Reviewed: Yes Diagnostics - Vital Signs Vital Signs Temp Pulse Resp BP Pulse Ox 11/05/17 16:48 98.9 F 99 22 180/134 99 - Laboratory Lab Results: Lab Results 11/05/17 Range/Units 17:50 Patient Temperature Not Reportable ABG pH 7.33 L (7.35-7.45) ABG pH (Temp Correct) Not Reportable ABG pCO2 52 H (35-45) mmHg ABG pCO2 (Temp Corrct Not Reportable ABG pO2 210 H (80-100) mmHg ABG pO2 (Temp Correct Not Reportable ABG HCO3 25.5 (19-31) mmol/L ABG O2 Saturation 99.5 H (95-98) % ABG Base Excess 0.7 (-2.0-2.0) Respiration Rate Not Reportable Ventilator Type Not Reportable Vent Mode Not Reportable FiO2 10 Inspiratory Time Not Reportable PEEP Not Reportable Pressure Support Not Reportable Pressure Control Not Reportable EPAP Not Reportable IPAP Not Reportable BiPAP Not Reportable Result Diagrams: 11/05/17 18:37 11/05/17 18:37 Lab Statement: Any lab studies that have been ordered have been reviewed, and results considered in the medical decision making process. - Radiology CXR Radiology Interpretation Completed By: Radiologist - ENLARGED CARDIAC SILHOUETTE. NO ACTIVE DISEASE. ED physician has reviewed this radiology report. - EKG 17:28 Cardiac Rate: NL - 89 BPM EKG Rhythm: Sinus Rhythm ST Segment: Non-Specific Ectopy: None EKG Interpretation: nml AVIVCT, nml QTc, and negative axis (-43). EKG Comparison: No Significant Change - From 03/04/17 Disposition - Course Course Of Treatment: Allergies noted. High blood pressure noted. Treated with labetalol 20mg IV x 1 for systolic BP >200. Pt given 100% O2 pending ABG after desat to 84%. O2 decreased to 4L NC after ABG. Pt given albuterol neb. Patient medications reviewed this visit. Patient cannot take aspirin due to anemia per Dr. Guadalupe, so no ASA given for hx of chest pain. Normal EKG. Normal CXR. Care to Dr. Salas at change of shift 1900 11/05/17 with labs pending. - Differential Dx - Cardiopulmonary Differential Diagnoses - Cardiopulmonary: Acute Dyspnea, Asthma, Bronchitis, CHF , Exacerbation Of COPD, Hypoxia, Lower Resp Infection - Diagnoses Provider Diagnoses: Dyspnea, Hypertension, poor control, Chest pain, Morbid obesity Discharge - Discharge Plan Condition: Stable Disposition: OTHER Discharge Disposition Comment: care to Dr. Salas at change of shift Referrals: Geneva Villanueva MD [Primary Care Provider] - The documentation as recorded by the Bakari garibay Tiffany accurately reflects the service I personally performed and the decisions made by , Donya Ballesteros MD.
--- NOTE | 2017-11-05 20:16 | RAD ---
INDICATION: Chest pain. Short of breath. Evaluate for pulmonary embolus. Short of breath. Morbid obesity. COMPARISON: Chest x-ray same day TECHNIQUE: Axial source images were obtained from the thoracic inlet to the hemidiaphragms following administration of [address] angiographic technique was utilized. Coronal and sagittal reconstructed images were acquired. The examination is mildly limited due to patient size. CHEST FINDINGS: Neck/thyroid: The visualized neck to include the thyroid appear normal. Chest wall: There are no acute abnormalities of the bony thorax or chest wall. There is no supraclavicular, infraclavicular, or axillary lymphadenopathy. Lungs : There are no pulmonary parenchymal masses or infiltrates. The pulmonary interstitium appears normal. There are no endobronchial lesions. Cardiomediastinal structures: There is no CT evidence of acute pulmonary embolic disease. The heart is normal in size. There is no pericardial effusion. There is no evidence of aortic aneurysm or dissection. There is no mediastinal or hilar adenopathy. The esophagus appears normal. Pleura : There are no pleural-based masses or effusions. Other: Limited views the upper abdomen show hepatomegaly with hepatic steatosis. IMPRESSION: MILDLY LIMITED EXAMINATION DUE TO PATIENT SIZE. NO CT EVIDENCE OF ACUTE PULMONARY EMBOLIC DISEASE. LUNGS CLEAR.
[2017-11-05] MEDS ORDERED: predniSONE TAB* 20 MG PO ONE (20:34)
--- NOTE | 2017-11-05 21:33 | UC ---
Leidy Vogt Julia, scribed for Juancho Salas MD on 11/05/17 at 1919 . - Progress Note Progress Note: This patient was signed out from Dr. Ballesteros at shift change. Upon evaluation at 19:15, patient denies recent illness, wheezing, and fever. She complains of SOB and chest tightness and reports LE edema at baseline. She reports he recent symptoms have not been improved by nebulizer treatments. A chest CT was ordered, revealing MILDLY LIMITED EXAMINATION DUE TO PATIENT SIZE. NO CT EVIDENCE OF ACUTE PULMONARY EMBOLIC DISEASE. LUNGS CLEAR, as per radiologist. ED Physician has reviewed this report. Re-Evaluation - Re-Evaluation 1 Re-Evaluation Time: 19:15 Change: Unchanged - Pt is not wheezing 2 Re-Evaluation Time: 21:00 Change: Worse - SaO2 is 86% Course/Dx - Course Course Of Treatment: Pt with dyspnea and perhaps mild cough. No wheezing, comfortable on O2. Ddimer slightly elevated. CT PE is neg for pathology. pCO2 52. Steroids and breathing tx given. No change with this. Pt very obese, concern for obesity related hypoventilation. Desats into mid 80s off O2, as such will require admission, likely PFTs prior to dispo. - Diagnoses Provider Diagnoses: Dyspnea, Hypercarbia, Hypoxia, Hypoventilation associated with obesity, Morbid obesity - Provider Notifications Discussed Care Of Patient With: Penelope Fallon Time Discussed With Above Provider: 20:55 Instructed by Provider To: Admit As Inpatient - Critical Care Time Critical Care Time: 30-74 min - exclusively of seperately billable procedures The documentation as recorded by the Leidy garibay Julia accurately reflects the service I personally performed and the decisions made by , Juancho Salas MD.
[2017-11-05 21:38] LABS: Urine Appearance Clear; Urine Blood Negative (Negative); Urine Color Yellow; Urine Ketones Negative (Negative); Urine Protein 1+(30 mg/dL) (Negative); Urine Specific Gravity 1.021 (1.010-1.030); Urine Urobilinogen Negative (Negative)
[2017-11-05] MEDS ORDERED: Ondansetron INJ* 2 MG/ML VIAL IV PRN (21:38)
[2017-11-05] MEDS ORDERED: Albuterol 2.5 MG/3 ML NEB.SOL* (0.083%) INH PRN (21:38)
[2017-11-05] MEDS ORDERED: PROCHLORPERAZINE INJ 5 MG/ML 2 ML VIAL IV PRN (21:38)
[2017-11-05] MEDS ORDERED: Morphine INJ* 2 MG/ML 1 ML CARPUJECT IV ONE (21:38)
[2017-11-05] MEDS ORDERED: hydrALAZINE IV* 20 MG/ML VIAL IV SLOW PU PRN (21:42)
[2017-11-05] MEDS ORDERED: Nitroglycerin 2% OINT* 1 GM PAK ONE (21:51)
[2017-11-05] MEDS ORDERED: PROCHLORPERAZINE INJ 5 MG/ML 2 ML VIAL ONE (21:52)
[2017-11-05] MEDS ORDERED: Heparin VIAL(*) 5000 UNITS/ML VIAL (FIVE THOUSAND) SUBCUT SCH (22:00)
[2017-11-05] MEDS ORDERED: Nitroglycerin 2% OINT* 1 GM PAK TOPICAL ONE (22:08)
[2017-11-05] MEDS: Albuterol/Ipratropium NEB.SOL* Albuterol 2.5 MG/Ipratropium 0.5 MG 3 ML INH SCH (23:44)
[2017-11-05] MEDS: amLODIPine TAB* 5 MG PO SCH (23:57)
--- NOTE | 2017-11-06 00:17 | HP ---
CC: Sammi Burns NP * HISTORY AND PHYSICAL: DATE OF ADMISSION: 11/05/17 PRIMARY CARE PROVIDER: Sammi Burns NP ATTENDING PHYSICIAN WHILE IN THE HOSPITAL: Penelope Fallon DO * (report dictated by Carlos Enrique Silverman NP) CHIEF COMPLAINT: 1. Cough. 2. Shortness of breath. 3. Headache. 4. Chest tightness. HISTORY OF PRESENT ILLNESS: Ms. Almodovar is a 42-year-old female patient. She has a history of anemia, reactive airway disease, migraines, GERD, hypothyroid. Recently, she says she has noticed her blood pressures have been running high, but never formally diagnosed with high blood pressure. She comes in today. She says over the last 24 hours she has noticed that she has had an intermittent chest pressure where she says is more constant than intermittent pressure. She says she just feels like she cannot get a deep breath. She denies any orthopnea. She denies any weight gain to her knowledge. She says both of her legs have been swollen, but she attributed this to Osteo Bi-Flex. She says that she has been noticing that she has been more short of breath. She denies specifically any orthopnea. She says she is having dyspnea on exertion. She has had cough intermittently and she does state that when she gets bronchitis, she has to take inhalers pretty routinely because of her history of airway disease. She has never been formally diagnosed with asthma or sleep apnea, but she was concerned because her breathing was not getting any better today. She was having this tightness in her chest, she was not feeling good. She was having more difficulty with breathing. She was concerned and came into the ED. In the ED, it was noted that her blood pressure was markedly elevated. She was hypoxic requiring 2 L of oxygen and she was having the chest tightness. Because of these findings, we were asked to evaluate for admission. PAST MEDICAL HISTORY: Significant for: 1. Anemia. 2. Question of reactive airway disease. 3. Migraines. 4. GERD. 5. Hypothyroidism. 6. Hypertension. PAST SURGICAL HISTORY: 1. She has had a port placement for iron transfusion. 2. She has had a . 3. Knee surgery. 4. Left foot surgery. HOME MEDICATIONS: Include: 1. DuoNeb, 1 neb inhaler every 6 hours as needed. 2. Topamax 250 mg at bedtime. 3. Synthroid 100 mcg p.o. daily. 4. Ibuprofen 800 mg p.o. t.i.d. 5. Prilosec 40 mg p.o. daily. ALLERGIES TO MEDICATIONS: Include TAPE, AMPICILLIN, CHLORHEXIDINE, LATEX, LEVOFLOXACIN, AZITHROMYCIN, PENICILLINS. FAMILY HISTORY: Mother had a history of [place] and stroke recently within a year. Father's history is unknown. SOCIAL HISTORY: She does not smoke, does not drink. Surrogate decision maker is her . REVIEW OF SYSTEMS: There is no documented fever. She denied having any significant weight change. There was no double vision. She denies having any ear discharge. There is no rhinorrhea. She denied having any sore throat now. She does admit to having a cough, which she says really started in the last 12 hours. There is chest tightness. She says that it is hard to get a deep breath. She does admit to shortness of breath which is worse with exertion. Denies any orthopnea. No nocturnal dyspnea. She denied having any abdominal pain or any nausea or vomiting. There has been no dysuria, no frequency. There has been no seizure. No loss of consciousness, no pruritus, and no skin ulceration. Review of 14 systems completed, all others negative. PHYSICAL EXAMINATION GENERAL: At this time Mrs. Almodovar is a 42-year-old female patient. She is morbidly obese. She is sitting in the ED stretcher, does not appear to be in any acute distress. VITAL SIGNS: Blood pressure now 176/99, pulse of 112, respirations were 24 but she was coughing during this. Her heart rate prior to her coughing was 90, respirations were 19, and O2 sat 96% on 2 L, and temperature is 98.9. HEENT: Head atraumatic and normocephalic. Eyes: EOMs are intact. Sclerae anicteric and not pale. NECK: Supple. Throat: Oral mucosa appears to be moist. No oropharyngeal erythema. LUNGS: She did have some wheezing in the bases bilaterally with equal diaphragmatic expansion. HEART: Sounds S1 and S2. Regular rate and rhythm. No murmurs, rubs, or gallops. ABDOMEN: Soft, flat, and nontender. Bowel sounds were present. EXTREMITIES: Pulses were 2+ throughout. She did have a pitting edema bilaterally. NEUROLOGIC: She is awake, alert, and oriented x3. No gross focal deficits. SKIN: Intact. DIAGNOSTIC STUDIES/LAB DATA: WBC of 10.4, RBC of 4.79, hemoglobin 11.4, hematocrit of 37, platelet count of 224. INR 0.98, PTT of 28. D-dimer is 305. Blood gas: pH of 7.33, pCO2 of 52. Her bicarb was 25. Chemistry: Sodium of 137, potassium 4, chloride of 105, bicarb 27, BUN 15, creatinine 0.62, glucose of 154, lactic 1, calcium of 9.2. Total bili 0.4, AST 17, ALT 23, alk phos 72. CK-MB 1.6, troponin 0. CRP of 9.7. Beta-hCG was negative. Albumin 2.7. Urine showed 1+ protein, 1+ rbc. Serology was negative for flu. She did have a chest thorax CTA today, which revealed mildly limited examination due to patient;s size. No CT evidence of acute pulmonary embolic disease, lungs clear. She had a chest x-ray obtained today. Impression: A large cardiac silhouette, no active disease. She had an EKG obtained today. The EKG shows a normal sinus rhythm rate of 89. No ST-elevations or T-wave inversions. It is reviewed with previous EKG, it appears to be similar. Old medical records reviewed. ASSESSMENT AND PLAN: Ms. Almodovar is a 42-year-old female patient coming into the ED today with complaints of cough, shortness of breath, and chest tightness. We were asked to evaluate for admission. She will be admitted under observation status for: 1. Chest pain with shortness of breath and hypoxia. The etiology of this is unclear. She could have some certainly reactive airway disease. She is wheezing. But my other concern too was she could have some hypertensive heart disease, possibly heart failure. I think at this point I am going to give her DuoNeb and Dulera. I think we need to get an echo, a BNP. We need to get her blood pressure better controlled as this certainly can be contributing to the chest tightness and also could be contributing to the headache. I am going to go ahead and give her nitro. I am going to give her 2 of morphine. In addition to this, we will give her a small dose of Norvasc and p.r.n. hydralazine. We will follow closely. She was given Labetalol here in the ED, which certainly may exacerbate reactive airway disease should she have this underlying problem, so we will try to avoid beta blockers at this point. We will get an echo, cycle her troponins, and we will continue to follow closely. Check daily weights. She is getting a dose of aspirin. We will put her on baby aspirin henceforth until we have further information. 2. Anemia. H and H stable. We will follow. 3. Reactive airway disease. Again, she is going to be put on nebs, inhaled steroids, and we will continue to monitor. 4. History of migraines. We will continue her Topamax and p.r.n. Tylenol. I am avoiding the NSAIDs in the setting of her hypertension as they can cause fluid retention. 5. Gastroesophageal reflux disease. Continue PPI therapy. 6. Hypothyroidism. I am checking a TSH as this could certainly, if this is off , could be contributing to the blood pressure. We will check her TSH. We will continue her meds and follow. 7. Hypertension. Again, this is relatively a new diagnosis for the patient. I am going to put her Norvasc. We are getting an echo. We will cycle her troponins. I have ordered p.r.n. hydralazine and we will also give nitro and will continue to follow. Because of the headache, I am going to get a CT of the brain as well. 8. DVT prophylaxis: She will be placed on heparin subcu. 9. Code status: She is a full code. 10. Fluids, electrolytes, and nutrition: She can have a heart-healthy diet. TIME SPENT: On admission 60 minutes, greater than half that time was spent face -to- face with the patient obtaining the history and physical. Other half time spent going over the plan of care with the patient, implementing the plan of care. I discussed the plan of care with my attending, Dr. Fallon, who is in agreement. CARLOS ENRIQUE SILVERMAN NP [id number]/[facility] #: [id number] ROSIE
[2017-11-06] MEDS: Acetaminophen TAB* 325 MG PO PRN ×3 (01:29→10:23)
[2017-11-06] MEDS: Albuterol/Ipratropium NEB.SOL* Albuterol 2.5 MG/Ipratropium 0.5 MG 3 ML INH SCH ×5 (03:01→19:44)
[2017-11-06 05:10] LABS: ABS Basophils 0.1 10^3/ul (0-0.2); ABS Eosinophils 0 10^3/ul (0-0.6); ABS Lymphocytes 0.4 10^3/ul (1.0-4.8); ABS Monocytes 0.3 10^3/ul (0-0.8); ABS Neutrophils 10.9 10^3/ul (1.5-7.7); ABS Nucleated RBC 0 10^3/ul; Eosinophil % 0.2 % (0-6); Hematocrit 37 % (35-47); Hemoglobin 11.4 g/dl (12.0-16.0); Lymphocyte % 3.7 % (25-47); Mean Corpuscular HGB Conc 31 g/dl (31-36); Mean Corpuscular Hemoglobin 24 pg (27-31); Mean Corpuscular Volume 77 fL (80-97); Mean Platelet Volume 9 um3 (7.4-10.4); Nucleated Red Blood Cells % 0.1; Platelet Count 209 10^3/ul (150-450); Red Blood Count 4.83 10^6/ul (4.0-5.4); Red Cell Distribution Width 19 % (10.5-15); White Blood Count 11.7 10^3/ul (3.5-10.8)
[2017-11-06 05:19] LABS: EGFR Non-African American 89.4 (>60)
[2017-11-06] MEDS ORDERED: Levothyroxine TAB* 100 MCG TAB PO SCH (06:00)
[2017-11-06] MEDS: Mometasone/Formoter 200/5 MDI INH SCH ×2 (07:53→19:40)
--- NOTE | 2017-11-06 08:05 | RAD ---
INDICATION: Headache and hypertension. COMPARISON: There are no prior studies available for comparison. TECHNIQUE: Contiguous axial sections of the brain were obtained from the skull base to the vertex without contrast. FINDINGS: The ventricles, cisterns and sulci are within normal limits. No significant focal abnormality or mass effect is seen. There is no evidence for hemorrhage. There is mild mucosal thickening within the maxillary and ethmoid sinuses. The visualized portion of the paranasal sinuses and mastoid air cells otherwise appear clear. IMPRESSION: NO EVIDENCE FOR ACUTE INTRACRANIAL ABNORMALITY.
[2017-11-06] MEDS ORDERED: Perflutren Lipid Microsphere* 3 ML VIAL ONE (08:19)
--- NOTE | 2017-11-06 08:23 | DCNOTE ---
Subjective Date of Service: 11/06/17 Interval History: Headache partly relieved by oral APAP. Not her usual h/a. She feels it was due to the NTG paste she had on earlier. Cough after resp tx. Overall feels better, anxious to go home. No chest discomfort. Objective Active Medications: Acetaminophen (Tylenol Tab*) 650 mg PO Q4H PRN PRN Reason: FEVER/PAIN Last Admin: 11/06/17 05:33 Dose: 650 mg Albuterol (Ventolin 2.5 Mg/3 Ml Neb.Juliana*) 2.5 mg INH Q2H PRN PRN Reason: SOB/WHEEZING Albuterol/Ipratropium (Duoneb (Albuterol 2.5 Mg/Ipratropium 0.5 Mg)) 1 neb INH [id number] AWAKE [facility] [place] Last Admin: 11/06/17 07:52 Dose: 1 neb Amlodipine Besylate (Norvasc Tab*) 5 mg PO DAILY [facility] [place] Last Admin: 11/05/17 23:57 Dose: 5 mg Aspirin (Aspirin Low Dose Tab*) 81 mg PO DAILY [facility] [place] Heparin Sodium (Porcine) (Heparin Vial(*)) 5,000 units SUBCUT Q8HR [facility] [place] Hydralazine HCl (Apresoline Iv*) 5 mg IV SLOW PU Q6H PRN PRN Reason: BLOOD PRESSURE Levothyroxine Sodium (Synthroid Tab*) 125 mcg PO DAILY@0600 [facility] [place] Mometasone Furoate/Formoterol Fumar (Dulera 200/5 Mdi*) 2 puff INH BID [facility] [place] Last Admin: 11/06/17 07:53 Dose: 2 puff Nitroglycerin (Nitroglycerin 2% Oint*) 1 inch TOPICAL 0600,1200 [facility] [place] PRN Reason: Protocol Omeprazole (Prilosec Cap*) 40 mg PO DAILY [facility] [place] Ondansetron HCl (Zofran Inj*) 4 mg IV Q6H PRN PRN Reason: NAUSEA Pharmacy Profile Note (Nitro Patch/Oint Remove*) 1 note TOPICAL 1800 [facility] [place] Pneumococcal Polyvalent Vaccine (Pneumococcal Vac 23-Polyvalent*) 0.5 ml IM .ONCE ONE Stop: 11/06/17 09:01 Prochlorperazine Edisylate (Compazine Inj*) 5 mg IV Q6H PRN PRN Reason: NAUSEA/VOMITING Last Admin: 11/05/17 21:58 Dose: 5 mg Topiramate (Topamax(*)) 50 mg PO BEDTIME NEW Topiramate (Topamax(*)) 200 mg PO BEDTIME NEW Vital Signs - 8 hr 11/06/17 11/06/17 11/06/17 03:26 07:58 08:01 Temperature 98.0 F Pulse Rate 91 85 85 Respiratory 20 16 16 Rate Blood Pressure 147/70 (mmHg) O2 Sat by Pulse 91 92 92 Oximetry Oxygen Devices in Use Now: None Appearance: Alert, partly up in bed. In good spirits. Occ mild dry cough during my visit, otherwise looks comfortable. Eyes: No Scleral Icterus Neck: NL Appearance and Movements; NL JVP, No Thyroid Enlargement, Masses Respiratory: Symmetrical Chest Expansion and Respiratory Effort, Clear to Auscultation, Clear to Percussion, Clear to Palpation, - Cardiovascular: NL Sounds; No Murmurs; No JVD, RRR, No Edema, - Extremities: No Edema, No Clubbing, Cyanosis, - Skin: No Rash or Ulcers, No Nodules or Sclerosis, - Neurological: Alert and Oriented x 3, NL Sensation Result Diagrams: 11/06/17 04:49 11/06/17 04:49 Additional Lab and Data: Lab Results 11/05/17 Range/Units 17:50 Patient Temperature Not Reportable ABG pH 7.33 L (7.35-7.45) ABG pH (Temp Correct) Not Reportable ABG pCO2 52 H (35-45) mmHg ABG pCO2 (Temp Corrct Not Reportable ABG pO2 210 H (80-100) mmHg ABG pO2 (Temp Correct Not Reportable ABG HCO3 25.5 (19-31) mmol/L ABG O2 Saturation 99.5 H (95-98) % ABG Base Excess 0.7 (-2.0-2.0) Respiration Rate Not Reportable Ventilator Type Not Reportable Vent Mode Not Reportable FiO2 10 Inspiratory Time Not Reportable PEEP Not Reportable Pressure Support Not Reportable Pressure Control Not Reportable EPAP Not Reportable IPAP Not Reportable BiPAP Not Reportable Assess/Plan/Problems-Billing Assessment: - Patient Problems (1) Chest pain Current Visit: Yes Status: Acute Code(s): R07.9 - CHEST PAIN, UNSPECIFIED SNOMED Code(s): 63401869 Comment: Atypical. Troponin wnl x 2, no siginificant st-t changes on ECG, neg CTA chest. Echo OK. Dr. Hancock's consult appreciated. Fup with Drs. Hancock and Rich. (2) HTN (hypertension) Current Visit: Yes Status: Acute Code(s): I10 - ESSENTIAL (PRIMARY) HYPERTENSION SNOMED Code(s): 31525800 Comment: Started on amlodipine, first dose 23:57 hrs 11/05. (3) Morbid obesity Current Visit: Yes Status: Acute Code(s): E66.01 - MORBID (SEVERE) OBESITY DUE TO EXCESS CALORIES SNOMED Code(s): 540917691 Comment: BMI 66+. Suggest outpt sleep lab study as ABG's abnl (while on O2) . I discussed bariatric surgery with the patient. She is interested in this and will pursue it with her PCP. (4) Migraine Current Visit: Yes Status: Acute Code(s): G43.909 - MIGRAINE, UNSP, NOT INTRACTABLE, WITHOUT STATUS MIGRAINOSUS SNOMED Code(s): 35050941 Comment: Co ntinue topiramate. Fup Dr. Zamora. (5) Hypothyroid Current Visit: Yes Status: Acute Code(s): E03.9 - HYPOTHYROIDISM, UNSPECIFIED SNOMED Code(s): 05345563 Comment: TSH 9+ 11/05/17. Continue increased of levothyroxine [address] Villanueva. Status and Disposition: Discharged on 11/07/17.
[2017-11-06] MEDS: amLODIPine TAB* 5 MG PO SCH (08:46)
[2017-11-06] MEDS: Aspirin Low Dose CHEW TAB* 81 MG PO SCH (08:46)
[2017-11-06] MEDS: Omeprazole CAP* 20 MG PO SCH (08:46)
[2017-11-06] MEDS: Heparin VIAL(*) 5000 UNITS/ML VIAL (FIVE THOUSAND) SUBCUT SCH ×3 (08:47→22:04)
[2017-11-06] MEDS ORDERED: Pneumococcal *Vac Polyvalent 0.5 ML VIAL IM ONE (09:00)
--- NOTE | 2017-11-06 10:50 | ECHO ---
Patient: EVELIN HAMPTON [facility] Rec#: [id number] : 1975 Date: 11/06/2017 Age: 42y Height: 167.64 cm / 66.0 in Weight: 185.07 kg / 407.9 lbs Sex: F BSA: 2.71 Room#: 440 Admit Date#: 11/05/2017 Type: Inpatient Referring: Carlos Enrique Silverman NP Reading: Wayne Cantrell MD Driver Sales: Saira Guallpa RDCS CC: Geneva Villanueva MD Transthoracic Echocardiogram Indication: Hypertension, shortness of breath BP: 147/70 HR: 96 Rhythm: NSR Findings History: Anemia, morbid obesity, HTN, hypthyroidism. Technical Comments: The study is technically difficult. The study is technically limited due to patient body habitus. Completed at 0915. Left Ventricle: The left ventricular chamber size is normal. Mild to moderate concentric left ventricular hypertrophy is observed. Global left ventricular wall motion and contractility are within normal limits. There is normal left ventricular systolic function. The estimated ejection fraction is 55-60%. Abnormal left ventricular diastolic function is observed. The left ventricular diastolic filling pattern is consistent with pseudonormalization. Left Atrium: The left atrium is mildly dilated. Right Ventricle: The right ventricle wall thickness is mildly increased. The right ventricle is mildly dilated. The right ventricular global systolic function is normal. Right Atrium: The right atrium is moderately dilated. Aortic Valve: The aortic valve is trileaflet. The aortic valve leaflets are mildly thickened. There is no evidence of aortic regurgitation. There is no evidence of aortic stenosis. Mitral Valve: The mitral valve leaflets are mildly thickened. There is trace to mild mitral regurgitation. There is no evidence of mitral stenosis. Tricuspid Valve: The tricuspid valve structure is not well visualized. There is trace to mild tricuspid regurgitation. The right ventricular systolic pressure is estimated at 29 mmHg. There is evidence that pulmonary hypertension may be underestimated. There is no tricuspid stenosis. Pulmonic Valve: The pulmonic valve structure is not well visualized. There is a trace pulmonic regurgitation. There is no pulmonic stenosis. Pericardium: There is no significant pericardial effusion. A pericardial fat pad is visualized. Aorta: There is no dilatation of the ascending aorta. There is no dilatation of the aortic arch. The aortic root is normal in size. Pulmonary Artery: The main pulmonary artery is not well visualized. Venous: The venous system is not well visualized. The inferior vena cava is not visualized. Contrast: Definity was used to optimize study. 7 mL of diluted Definity was utilized. Intravenous contrast was used to enhance endocardial border definition. Summary: There was not any prior study for comparison. Conclusions The study is technically limited due to patient body habitus. Completed at 0915. Global left ventricular wall motion and contractility are within normal limits. There is normal left ventricular systolic function. The estimated ejection fraction is 55-60%. The right ventricular global systolic function is normal. There is no evidence of aortic regurgitation. There is no evidence of aortic stenosis. There is trace to mild mitral regurgitation. There is trace to mild tricuspid regurgitation. The right ventricular systolic pressure is estimated at 29 mmHg. There is evidence that pulmonary hypertension may be underestimated. There is no significant pericardial effusion. Measurements Name Value Normal Range RVIDd (AP) 2D 3.1 cm (0.9 - 2.6) RVDdMajor (2D) 4.8 cm (2.2 - 4.4) RVAW (2D) 0.7 cm (0.2 - 0.5) RAd ISD 4CH 6.4 cm (3.4 - 4.9) RA (A4C)W 5.4 cm (2.9 - 4.6) IVSd (2D) 1.3 cm (0.6 - 1) LVPWd (2D) 1.3 cm (0.6 - 1) LVIDd (2D) 5.3 cm (3.6 - 5.4) LVIDs (2D) 3.6 cm - LV FS (2D) 32 % (25 - 45) Aortic Annulus 2.2 cm (1.4 - 2.6) Ao root diameter (2D) 3.5 cm (2.1 - 3.5) Ascending Ao 3.2 cm (2.1 - 3.4) Aortic arch 2.4 cm (1.8 - 3.4) LA dimension (AP) 2D 3.7 cm (2.3 - 3.8) LAd ISD 4CH 5.8 cm (2.9 - 5.3) LA ISD 4CH W 5.3 cm (2.5 - 4.5) Name Value Normal Range LA ESV SP 4CH (A/L) 90 ml - LA ESV SP 2CH (A/L) 100 ml - LA ESV BP (A/L) 99 ml - LA ESV BP (A/L) index 36 ml/m2 - LA ESV SP 4CH (MOD) 85 ml - LA ESV SP 2CH (MOD) 95 ml - Name Value Normal Range MV E-wave Vmax 1.09 m/sec - MV deceleration time 190.5 msec - MV A-wave Vmax 0.9 m/sec - MV E:A ratio 1.2 ratio - LV septal e' Vmax 0.06 m/sec - LV lateral e' Vmax 0.08 m/sec - LV E:e' septal ratio 18.17 ratio - LV E:e' lateral ratio 13.63 ratio - Name Value Normal Range AV Vmax 1.8 m/sec - AV VTI 35.87 cm - AV peak gradient 12.86 mmHg - AV mean gradient 7.8 mmHg - LVOT Vmax 1.15 m/sec - LVOT VTI 28.21 cm - LVOT peak gradient 5.33 mmHg - LVOT mean gradient 2.84 mmHg - SHAILA Vmax 1.5 m/sec - Name Value Normal Range TR Vmax 2.3 m/sec - TR peak gradient 21 mmHg - RAP 8 mmHg - RVSP 29 mmHg - Name Value Normal Range PV Vmax 0.71 m/sec - PV peak gradient 2.03 mmHg -
[2017-11-06] MEDS ORDERED: Nitro Patch/OINT Remove TOPICAL SCH (18:00)
[2017-11-06] MEDS: Topiramate TAB(*) 25 MG PO SCH (22:03)
[2017-11-06] MEDS: Topiramate TAB(*) 100 MG PO SCH (22:03)
[2017-11-06] MEDS: Nitroglycerin 2% OINT* 1 GM PAK TOPICAL SCH (22:06)
--- NOTE | 2017-11-06 23:07 | CONS ---
PULMONARY CONSULTATION REPORT: DATE OF CONSULTATION: 11/06/17 CONSULTATION REQUESTED BY: Dr. Miner REASON FOR CONSULTATION: Evaluation of shortness of breath. HISTORY OF PRESENT ILLNESS: The patient is a 42-year-old morbidly obese female with history of reactive airways disease, migraine, GERD, hypothyroidism, hypertension, anemia, who presents for evaluation of chest tightness, shortness of breath. The patient was seen by me in March 2017 with similar complaints. She presents for evaluation of worsening chest tightness, difficulty taking deep breath, cough. The patient reports sick contacts recently. She has intermittent cough. She also reports GERD symptoms. She also reports that she gets bronchitis and uses inhalers at home. She was recommended to have pulmonary function testing and sleep study in the past; however, has never gone through it. The patient has reported benefit from O2 supplementation. Her oxygen saturations have been around 90s to 93 at rest. She has not moved to check oxygen saturation while ambulating. The patient had further evaluation, which include CT of the chest to rule out pulmonary embolism. I have personally reviewed the images and with the patient today. The patient did not have evidence of filling defects in her pulmonary arteries. She did not have any parenchymal abnormalities. The patient also had an echocardiogram, which revealed mild pulmonary hypertension, mild mitral regurgitation and tricuspid regurgitation with normal ejection fraction. The patient was initiated on DuoNebs and GERD therapy. The patient is concerned about her oxygen saturations getting worse with discharge. The patient also had pulmonary function testing, which was suggestive of hypercapnia and mild acidosis. PAST MEDICAL HISTORY: 1. Anemia. 2. Reactive airways disease. 3. Migraines. 4. GERD. 5. Hypothyroidism. 6. Hypertension. 7. Super morbid obesity. PAST SURGICAL HISTORY: 1. Port placement for transfusion. 2. . 3. Knee surgery. 4. Left foot surgery. HOME MEDICATIONS: 1. DuoNeb. 2. Topamax. 3. Synthroid. 4. Ibuprofen. 5. Prilosec. ALLERGIES: AMPICILLIN, TAPE, CHLORHEXIDINE, LATEX, LEVOFLOXACIN, AZITHROMYCIN, PENICILLIN. FAMILY HISTORY: ND and stroke in the mother. Father's history is unknown. SOCIAL HISTORY: Does not smoke or drink. Lives at home with her . REVIEW OF SYSTEMS: All 14 systems were reviewed and as per HPI. PHYSICAL EXAM: The patient is morbidly obese female lying on her side in bed, in no apparent distress. Vital Signs: Temperature 98, pulse 100 beats per minute, respiratory rate 18 per minute, O2 sat 96% to 98% on 2 L, blood pressure 159/97. HEENT: Pupils equal, reactive to light. Mucous membranes moist. Sclerae are anicteric. Respiratory: Good air entry bilaterally, diminished at bases. No wheeze on auscultation. No accessory muscle usage. Cardiovascular: S1, S2 present. Slightly tachycardic. No murmurs, gallops or rubs. Abdomen: Obese, bowel sounds present, nontender and nondistended. Extremities: Trace edema present bilaterally. Neuro: No focal deficits, slightly anxious. Skin: No rash or bruises. LABORATORY DATA/DIAGNOSTIC STUDIES: WBC count 11.7, hemoglobin 11.4, hematocrit 37, platelet count 209. Blood gases analysis showed pH of 7.33, PCO2 of 52, PO2 of 210, O2 sat 99% on 10 L. Sodium is 133, potassium 4.3, chloride 101 bicarb 26, BUN 14, creatinine 0.7, glucose was 259, hemoglobin A1c elevated to 7.7, lactic acid within normal limits. Calcium levels within normal limits. BNP slightly elevated at 108. Troponin x2 within normal limits. Influenza A and B negative. CT chest as described above in HPI. IMPRESSION/RECOMMENDATION: 42-year-old morbidly obese female, nonsmoker with shortness of breath and chest tightness and underlying history of gastroesophageal reflux disease and laryngeal reflux with concern for reactive airways disease/asthma. The patient is receiving bronchodilators appropriately. I do not suspect any pneumonia. She does not have any parenchymal opacities. Restriction from morbid obesity is likely causing hypercapnic respiratory acidosis for her. She has body habitus concerning for sleep and obesity, hypoventilation syndrome which could be resulting in hypercapnia and hypoxemia. Recommend incentive spirometry. Continuing with maintenance inhaler for reactive airways disease. Gastroesophageal reflux disease precautions. Continue with Prilosec. She will need PFTs and sleep study as an outpatient. She would qualify for home sleep test. Will order home sleep testing. Sleep study was discussed in detail with the patient. Thank you for allowing me to participate in the care of your patient. Will follow up with you. [id number]/[facility] #: [id number] ROSIE
[2017-11-06] MEDS ORDERED: Albuterol/Ipratropium NEB.SOL* Albuterol 2.5 MG/Ipratropium 0.5 MG 3 ML INH PRN (23:22)
[2017-11-07] MEDS: Albuterol/Ipratropium NEB.SOL* Albuterol 2.5 MG/Ipratropium 0.5 MG 3 ML INH SCH (03:11)
[2017-11-07] MEDS: Heparin VIAL(*) 5000 UNITS/ML VIAL (FIVE THOUSAND) SUBCUT SCH ×3 (06:17→23:41)
[2017-11-07] MEDS: Levothyroxine TAB* 125 MCG TAB PO SCH (06:17)
[2017-11-07] MEDS: Nitroglycerin 2% OINT* 1 GM PAK TOPICAL SCH (06:20)
[2017-11-07] MEDS: Mometasone/Formoter 200/5 MDI INH SCH ×2 (07:42→20:17)
[2017-11-07] MEDS: Omeprazole CAP* 20 MG PO SCH (08:04)
[2017-11-07] MEDS: Aspirin Low Dose CHEW TAB* 81 MG PO SCH (08:04)
[2017-11-07] MEDS: amLODIPine TAB* 5 MG PO SCH (08:04)
--- NOTE | 2017-11-07 08:30 | PN ---
Progress Note - Progress Note Date of Service: 11/07/17 Note: Time spent on discharge 50 minutes.
--- NOTE | 2017-11-07 15:25 | PN ---
Subjective Date of Service: 11/07/17 Interval History: Patient c/o palpitations/chest discomfort, ?? correlate with brief periods of bradycardia on monitro. She is very anxious about gong home. Objective Active Medications: Acetaminophen (Tylenol Tab*) 650 mg PO Q4H PRN PRN Reason: FEVER/PAIN Last Admin: 11/06/17 10:23 Dose: 650 mg Albuterol (Ventolin 2.5 Mg/3 Ml Neb.Juliana*) 2.5 mg INH Q2H PRN PRN Reason: SOB/WHEEZING Albuterol/Ipratropium (Duoneb (Albuterol 2.5 Mg/Ipratropium 0.5 Mg)) 1 neb INH Q4H PRN PRN Reason: SOB/WHEEZING Amlodipine Besylate (Norvasc Tab*) 5 mg PO DAILY [facility] Last Admin: 11/07/17 08:04 Dose: 5 mg Aspirin (Aspirin Low Dose Tab*) 81 mg PO DAILY [facility] Last Admin: 11/07/17 08:04 Dose: 81 mg Heparin Sodium (Porcine) (Heparin Vial(*)) 5,000 units SUBCUT Q8HR [facility] Last Admin: 11/07/17 14:36 Dose: 5,000 units Hydralazine HCl (Apresoline Iv*) 5 mg IV SLOW PU Q6H PRN PRN Reason: BLOOD PRESSURE Levothyroxine Sodium (Synthroid Tab*) 125 mcg PO DAILY@0600 [facility] Last Admin: 11/07/17 06:17 Dose: 125 mcg Mometasone Furoate/Formoterol Fumar (Dulera 200/5 Mdi*) 2 puff INH BID [facility] Last Admin: 11/07/17 07:42 Dose: 2 puff Omeprazole (Prilosec Cap*) 40 mg PO DAILY [facility] Last Admin: 11/07/17 08:04 Dose: 40 mg Ondansetron HCl (Zofran Inj*) 4 mg IV Q6H PRN PRN Reason: NAUSEA Prochlorperazine Edisylate (Compazine Inj*) 5 mg IV Q6H PRN PRN Reason: NAUSEA/VOMITING Last Admin: 11/05/17 21:58 Dose: 5 mg Topiramate (Topamax(*)) 50 mg PO BEDTIME [facility] Last Admin: 11/06/17 22:03 Dose: 50 mg Topiramate (Topamax(*)) 200 mg PO BEDTIME NEW Last Admin: 11/06/17 22:03 Dose: 200 mg Vital Signs - 8 hr 11/07/17 11/07/17 11/07/17 07:24 07:42 07:43 Temperature 98.0 F Pulse Rate 88 84 Respiratory 22 18 Rate Blood Pressure 144/74 (mmHg) O2 Sat by Pulse 95 97 97 Oximetry 11/07/17 11/07/17 08:00 11:27 Temperature 98.2 F Pulse Rate 90 Respiratory 18 20 Rate Blood Pressure 160/99 (mmHg) O2 Sat by Pulse 98 Oximetry Oxygen Devices in Use Now: None Appearance: Alert, sitting up in bed. Emotionally labile. Eyes: No Scleral Icterus Respiratory: Symmetrical Chest Expansion and Respiratory Effort, Clear to Auscultation, Clear to Percussion Cardiovascular: NL Sounds; No Murmurs; No JVD, RRR, No Edema, - Extremities: No Edema, No Clubbing, Cyanosis, - Skin: No Rash or Ulcers, No Nodules or Sclerosis, - Neurological: Alert and Oriented x 3, NL Sensation Result Diagrams: 11/06/17 04:49 11/06/17 04:49 Additional Lab and Data: Lab Results 11/05/17 Range/Units 17:50 Patient Temperature Not Reportable ABG pH 7.33 L (7.35-7.45) ABG pH (Temp Correct) Not Reportable ABG pCO2 52 H (35-45) mmHg ABG pCO2 (Temp Corrct Not Reportable ABG pO2 210 H (80-100) mmHg ABG pO2 (Temp Correct Not Reportable ABG HCO3 25.5 (19-31) mmol/L ABG O2 Saturation 99.5 H (95-98) % ABG Base Excess 0.7 (-2.0-2.0) Respiration Rate Not Reportable Ventilator Type Not Reportable Vent Mode Not Reportable FiO2 10 Inspiratory Time Not Reportable PEEP Not Reportable Pressure Support Not Reportable Pressure Control Not Reportable EPAP Not Reportable IPAP Not Reportable BiPAP Not Reportable Assess/Plan/Problems-Billing Assessment: - Patient Problems (1) Chest pain Current Visit: Yes Status: Acute Code(s): R07.9 - CHEST PAIN, UNSPECIFIED SNOMED Code(s): 77460543 Comment: Atypical. Troponin wnl x 2, no siginificant st-t changes on ECG, neg CTA chest. Echo OK. Dr. Hancock's consult appreciated. Fup with Drs. Hancock and Rich. Discussed with Dr. Ang. Plan treadmill stress test +/- Right knee immobilizer. (2) HTN (hypertension) Current Visit: Yes Status: Acute Code(s): I10 - ESSENTIAL (PRIMARY) HYPERTENSION SNOMED Code(s): 01319152 Comment: Started on amlodipine, first dose 23:57 hrs 11/05. (3) Morbid obesity Current Visit: Yes Status: Acute Code(s): E66.01 - MORBID (SEVERE) OBESITY DUE TO EXCESS CALORIES SNOMED Code(s): 150967921 Comment: BMI 66+. Suggest outpt sleep lab study as ABG's abnl (while on O2) . I discussed bariatric surgery with the patient. She is interested in this and will pursue it with her PCP. (4) Migraine Current Visit: Yes Status: Acute Code(s): G43.909 - MIGRAINE, UNSP, NOT INTRACTABLE, WITHOUT STATUS MIGRAINOSUS SNOMED Code(s): 97953351 Comment: Continue topiramate. Fup Dr. Zamora. (5) Hypothyroid Current Visit: Yes Status: Acute Code(s): E03.9 - HYPOTHYROIDISM, UNSPECIFIED SNOMED Code(s): 58977370 Comment: TSH 9+ 11/05/17. Continue increased dose of levothyroxine [address] Villanueva. Status and Disposition: Discharged on 11/07/17.
--- NOTE | 2017-11-07 19:14 | CONS ---
CC: Dr. Geneva Villanueva; Hospitalist Service; Dr. Leslie Hancock * CARDIOLOGY CONSULTATION NOTE: DATE OF CONSULT: 11/07/17 REASON FOR CONSULTATION: Intermittent bradycardia. HISTORY OF PRESENT ILLNESS: Uyen Almodovar is a 42-year-old woman who is quite overweight, has a history of hypothyroid disease, and presented to the emergency department on 11/05/17 for sensation of not getting enough oxygen. Specifically, the patient will state she feels a hollowness or emptiness in the mid substernal chest area, it is typically at rest and since she has been in the hospital, it typically correlates with periods of low heart rate, her heart rate will drop into the 30s. The emergency department notes document that she had pain that was 8/10 in severity, but the patient and her both state that this is not actually pain. Emergency room notes document that her oxygen saturations were in the 70s on arrival and improved with a nonrebreather. She was also hypertensive on arrival. Since admission, she has been on telemetry and during the daytime while awake, she will have episodes where her sinus rate drops into the 30's and on rare occasions, she will have a junctional escape rhythm. We now see correlation of the empty feeling and sense of air hunger correlating with the bradycardia. The patient has been constipated over the last week, but has not had any symptoms that correlate with bearing down with a constipation and she states the constipation has resolved. The patient had an injury about a month ago, she felt a "pop", went to ED where she was told she injured her ACL, but she has not had time to see an orthopedic surgeon for followup. She states that her leg has been in constant pain since. The emergency room documents that she had a respiratory illness last August for which she was on prednisone and antibiotics, but these respiratory symptoms have resolved. The patient denies sinus problems, any coughing. No diarrhea. No abdominal discomfort after eating. No trouble urinating. The patient has a history of orthostatic dizziness and fainting 7 to 10 years ago. She says since she has been treated with iron replacement shots, she has not had these symptoms. The symptoms years ago are different than what she is experiencing now. In the past when she stood up, she feel like she was getting a blackout sort of closing in sensation as opposed to the sensation where there is an emptiness in her chest and air hunger. PAST MEDICAL HISTORY: 1. Hypothyroid disease. 2. Iron deficiency anemia (Dr. Guadalupe). 3. Hypertension. 4. Asthma and chronic bronchitis. 5. Reflux. 6. Migraines. PAST SURGICAL HISTORY: 1. Port for iron transfusions. 2. section. 3. Knee surgery. 4. Left foot surgery. MEDICATIONS: Inpatient medications include: 1. Tylenol. 2. Ventolin nebulizers p.r.n. 3. DuoNeb p.r.n. 4. Norvasc 5 mg a day. 5. Aspirin 81 mg a day. 6. Subcutaneous heparin. 7. Hydralazine IV p.r.n. 8. Synthroid 125 mcg daily. 9. Salmeterol 2 puffs b.i.d. 10. Prilosec 40 mg a day. 11. Zofran p.r.n. nausea. 12. Compazine p.r.n. nausea. 13. Topamax 250 mg p.o. q.h.s. ALLERGIES: Include TAPE, AMPICILLIN, CHLORHEXIDINE, LATEX, LEVOFLOXACIN, AZITHROMYCIN, and PENICILLIN. SOCIAL HISTORY: The patient has a supportive and children. She is working in [employer], relatively new job. She drinks a couple of cups of tea in the morning. No alcohol intake. Nonsmoker. FAMILY HISTORY: Significant that her mother had a history of a heart attack and her sister had a heart attack at age 50. Stroke with her mother and father's history is unknown. REVIEW OF SYSTEMS: See history of present illness for respiratory illness in August. Constipation for the last week. Leg injury with pain. PHYSICAL EXAMINATION: The patient is 5 feet 6 inches, weighs 407 pounds with a BMI of 65.8. Vitals: Blood pressure 144/74, pulse of 88 and regular, respiratory rate is 22 , oxygen saturation 95% to 97% on room air currently, and temperature is 98 degrees Fahrenheit. I reviewed her vital signs from 11/05/17 at 1648, blood pressure 180/134, pulse was [address] Ballesteros's notes of desaturation to 84%. General Appearance: Morbidly obese, middle-aged woman, sitting upright, appears in no distress. Psychologically, pleasant and cooperative, somewhat labile, tearful. Neurologically, awake, alert, oriented to person, place, and time. Grossly normal sensory and motor function in the upper and lower extremities in the bed. Speech is articulate. Comprehension is good. She follows commands well. She does not appear sleepy or somnolent at all. Motor function is grossly normal. Skin: Warm, dry. No cyanosis or rashes appreciated. HEENT: Pupils were equal and round. Mucous membranes moist. Neck: Without increased JVP appreciated. Good carotid pulses without audible bruits. Carotid sinus massage done with no rate lowering. Respirations a little distant from obesity, but clear with good effort. No wheezes, rales, or rhonchi. Coronary: Also distant from obesity. S1, S2 regular without murmurs or rubs. Abdomen: Overweight. Active bowel sounds. Lower Extremities: Thickened from obesity, but no edema. DIAGNOSTIC STUDIES/LAB DATA: A 12-lead ECG from 2017 shows sinus rhythm, 90 beats a minute, QRS axis -30 with R prime in V1 and normal AV and IV conduction times. EKG from 11/05/17 shows normal sinus rhythm, 90 beats a minute, mild left axis deviation, normal AV and IV conduction times. EKG #3 from 11/06/17 shows normal sinus rhythm at 92 beats a minute, unchanged from prior. ST segments are normal in all of these. Echocardiogram done on 11/05/[address] Cantrell showed mild to moderate left ventricular hypertrophy with an ejection fraction of 55% to 60% and pseudonormal diastolic filling abnormality. The right ventricle was mildly dilated and thickened, but showed normal systolic function. She had mild mitral and mild tricuspid insufficiency and PA pressure was at minimum 29 mmHg, possibly underestimated. Labs show influenza A and B negative. White count on the 11/05/17 was 10.4. White count on the 11/06/17 of 11.7, hemoglobin 11.4, hematocrit 37, mean cell volume low at 77 (as low as 65 in September 2015, but down from June 2017 when it was 82). INR is 0.98. D-dimer 305. ABG on 07/05/18 at 1750 showed pH of 7.33, pCO2 52, pO2 210, and oxygen saturation 99%. Electrolytes on admission, sodium 137, potassium 4.0, chloride 105, bicarb 27, glucose 154, BUN 15, creatinine 0.62. C-reactive protein elevated at 9.77. CRP on 03/04/17 was 50 and on 07/12/15 was 18 and in December 2010 less than 0.5. TSH elevated 9.78. Beta-hCG negative. Troponin #1 0.00, troponin #2 0.01, troponin #3 0.01. Brain natriuretic peptide 108. Total cholesterol 181, triglycerides 161, LDL cholesterol 112, HDL cholesterol 36. Lactic acid 1.1. AST 17, ALT 23. Urinalysis showed pH of 1.021, positive for protein, negative for nitrite or esterase. Additional studies: 1. CT angiogram was negative for pulmonary embolus. 2. Chest x-ray, cardiomegaly, but no active pulmonary disease. 3. Brain CT showed no intracranial abnormalities. ED notes from 10/03/17 reviewed. Knee x-ray was normal (right knee). IMPRESSION AND PLAN: In summary, Uyen Almodovar is a 42-year-old woman whose history to me is a sense of air hunger or shortness of breath, catching her breath that seems to correlate with episodes of bradycardia. She presented to the emergency department with complaints of 8/10 chest pain, now says it is not actually pain. Uyen does have intermittent sinus bradycardia, always during waking hours on telemetry and not with sleep. This suggests some sort of trigger while awake , possibly an increase in vagal tone. In addition to Gabriela's morbid obesity which puts her at risk for restrictive breathing problems and obstructive sleep apnea Uyen has evidence of inflammation or infection based on elevated white count and C-reactive protein, she is mildly hypothyroid and as an inpatient, her Synthroid dose was increased , she has evidence of hypercarbia and hypoxia this admission. Bradycardia differential: Lyme disease. The patient could have degenerative sick sinus syndrome, but if this were the case, I would have thought that her bradycardia would be more prevalent with sleep or more even throughout the day. Increased vagal tone-constipation, pain from her knee injury, anxiety and respiratory triggors all in the differential. Iron deficiency anemia (as syncope with this in the past). Ischemic induced bradycardia. I would try to correct any underlying disorders that were able to, treat the pain for the knee, ensure there is no residual constipation or increased vagal tone from any gastrointestinal source. If she is due for an iron transfusion, you could consider this. We could see if positive pressure air in the daytime or changes in position can minimize her intermittent bradyarrhythmias. The patient has not had a history to suggest Lyme, but they did have a son with Lyme and I have sent a Lyme titer as this could contribute to intermittent bradycardia, but this will take several days to come back. I told the patient if we did not find a reversible or treatable etiology of her sick sinus syndrome, then at some point, we might recommend a pacemaker. She is not anxious to get a pacemaker and I would recommend an electrophysiology referral going this far. I scheduled a treadmill stress test, we will see if we can get physical therapy to get a brace for her knee to allow ambulation. Dr. Hancock's note was reviewed, but on the short-term, we may want to additionally consider oxygen or if we can do it accurately, a 24-hour oxygen saturation or 12 hours in a day to see if there is any correlation with hypoxia in these events. I am not recommending a pacemaker at this time, but it may need to be considered in the future. Further recommendations will be made pending the results of the above evaluation. [id number]/[facility] #: [id number] [facility]
[2017-11-07] MEDS: Topiramate TAB(*) 25 MG PO SCH (20:38)
[2017-11-07] MEDS: Topiramate TAB(*) 100 MG PO SCH (20:38)
--- NOTE | 2017-11-08 00:14 | DS ---
CC: Dr. Villanueva; Dr. Hancock * DISCHARGE SUMMARY: DATE OF ADMISSION: DATE OF DISCHARGE: 11/07/17 HISTORY OF PRESENT ILLNESS: This 42-year-old woman presented with cough, shortness of breath, headache, and chest tightness. The history is detailed in the admission note. She is admitted to a telemetry note. She had 3 troponin levels checked all of which were within normal limits. She had an echocardiogram, which is unremarkable. The chest pressure largely resolved. She was seen in consultation by Dr. Hancock. Her O2 saturations fluctuated quite a bit. On 11/06, her O2 saturation on room air was found to be 86% with a repeat of 80%. She has currently received home oxygen. Dr. Hancock saw her in consultation and on followup, she will need an outpatient sleep apnea study. The patient was interested in bariatric surgery and this should be pursued with her primary care physician, Dr. Villanueva. Her TSH was over 9 and her levothyroxine dose has been increased to 125 mcg daily. Due to her blood pressure, she was started on amlodipine 5 mg daily. Her blood pressure on the day of discharge is 144/74. FINAL DIAGNOSES: 1. Atypical chest pain. 2. Chronic obstructive pulmonary disease and/or restrictive lung disease. 3. Hypertension. 4. Super morbid obesity. 5. Migraine headache. 6. Hypothyroidism. 7. Gastroesophageal reflux disease. DISCHARGE MEDICATIONS: 1. Albuterol by nebulizer every 6 hours p.r.n. 2. Topiramate 50 mg plus 200 mg at bedtime. 3. Ibuprofen 800 mg t.i.d. p.r.n. 4. Levothyroxine 125 mcg daily. 5. Amlodipine 5 mg daily. 6. Acetaminophen 650 mg every 4 hours p.r.n. 7. Omeprazole 40 mg daily. [id number]/[facility] #: [id number] [facility]
[2017-11-08] MEDS: Levothyroxine TAB* 125 MCG TAB PO SCH (05:53)
[2017-11-08] MEDS: Heparin VIAL(*) 5000 UNITS/ML VIAL (FIVE THOUSAND) SUBCUT SCH ×2 (05:55→17:02)
[2017-11-08] MEDS: Aspirin Low Dose CHEW TAB* 81 MG PO SCH (08:54)
[2017-11-08] MEDS: amLODIPine TAB* 5 MG PO SCH (08:54)
[2017-11-08] MEDS: Omeprazole CAP* 20 MG PO SCH (08:54)
[2017-11-08 09:01] LABS: ABS Basophils 0.1 10^3/ul (0-0.2); ABS Eosinophils 0.3 10^3/ul (0-0.6); ABS Monocytes 0.7 10^3/ul (0-0.8); ABS Neutrophils 6.6 10^3/ul (1.5-7.7); ABS Nucleated RBC 0 10^3/ul; Eosinophil % 3.5 % (0-6); Hematocrit 35 % (35-47); Hemoglobin 10.8 g/dl (12.0-16.0); Lymphocyte % 11.9 % (25-47); Mean Corpuscular HGB Conc 31 g/dl (31-36); Mean Corpuscular Hemoglobin 24 pg (27-31); Mean Corpuscular Volume 77 fL (80-97); Mean Platelet Volume 8 um3 (7.4-10.4); Nucleated Red Blood Cells % 0.1; Platelet Count 183 10^3/ul (150-450); Red Blood Count 4.58 10^6/ul (4.0-5.4); Red Cell Distribution Width 18 % (10.5-15); White Blood Count 8.7 10^3/ul (3.5-10.8)
[2017-11-08] MEDS: Mometasone/Formoter 200/5 MDI INH SCH ×2 (10:23→20:07)
--- NOTE | 2017-11-08 12:47 | PN ---
Subjective Date of Service: 11/08/17 Interval History: Patient seen and examined. States no chest pain and no SOB at present. Pending stress test today. Tolerated bipap last night and states she slept a little better. No further complaints. Objective Active Medications: Acetaminophen (Tylenol Tab*) 650 mg PO Q4H PRN PRN Reason: FEVER/PAIN Last Admin: 11/06/17 10:23 Dose: 650 mg Albuterol (Ventolin 2.5 Mg/3 Ml Neb.Juliana*) 2.5 mg INH Q2H PRN PRN Reason: SOB/WHEEZING Albuterol/Ipratropium (Duoneb (Albuterol 2.5 Mg/Ipratropium 0.5 Mg)) 1 neb INH Q4H PRN PRN Reason: SOB/WHEEZING Amlodipine Besylate (Norvasc Tab*) 5 mg PO DAILY [facility] Last Admin: 11/08/17 08:54 Dose: 5 mg Aspirin (Aspirin Low Dose Tab*) 81 mg PO DAILY [facility] Last Admin: 11/08/17 08:54 Dose: 81 mg Heparin Sodium (Porcine) (Heparin Vial(*)) 5,000 units SUBCUT Q8HR [facility] Last Admin: 11/08/17 05:55 Dose: 5,000 units Hydralazine HCl (Apresoline Iv*) 5 mg IV SLOW PU Q6H PRN PRN Reason: BLOOD PRESSURE Last Admin: 11/07/17 20:39 Dose: 5 mg Levothyroxine Sodium (Synthroid Tab*) 125 mcg PO DAILY@0600 [facility] Last Admin: 11/08/17 05:53 Dose: 125 mcg Mometasone Furoate/Formoterol Fumar (Dulera 200/5 Mdi*) 2 puff INH BID [facility] Last Admin: 11/08/17 10:23 Dose: 2 puff Omeprazole (Prilosec Cap*) 40 mg PO DAILY [facility] Last Admin: 11/08/17 08:54 Dose: 40 mg Ondansetron HCl (Zofran Inj*) 4 mg IV Q6H PRN PRN Reason: NAUSEA Prochlorperazine Edisylate (Compazine Inj*) 5 mg IV Q6H PRN PRN Reason: NAUSEA/VOMITING Last Admin: 11/05/17 21:58 Dose: 5 mg Topiramate (Topamax(*)) 50 mg PO BEDTIME [facility] Last Admin: 11/07/17 20:38 Dose: 50 mg Topiramate (Topamax(*)) 200 mg PO BEDTIME [facility] Last Admin: 11/07/17 20:38 Dose: 200 mg Oxygen Devices in Use Now: Nasal Cannula, BiPAP Appearance: Alert, NAD Eyes: No Scleral Icterus, PERRLA Ears/Nose/Mouth/Throat: Mucous Membranes Moist Neck: Trachea Midline Respiratory: Symmetrical Chest Expansion and Respiratory Effort, Clear to Auscultation Cardiovascular: NL Sounds; No Murmurs; No JVD, RRR Abdominal: NL Sounds; No Tenderness; No Distention Extremities: No Edema, No Clubbing, Cyanosis Neurological: Alert and Oriented x 3, NL Muscle Strength and Tone Nutrition: Taking PO's, - - NPO for test today Result Diagrams: 11/08/17 08:14 11/06/17 04:49 Additional Lab and Data: Lab Results 11/05/17 Range/Units 17:50 Patient Temperature Not Reportable ABG pH 7.33 L (7.35-7.45) ABG pH (Temp Correct) Not Reportable ABG pCO2 52 H (35-45) mmHg ABG pCO2 (Temp Corrct Not Reportable ABG pO2 210 H (80-100) mmHg ABG pO2 (Temp Correct Not Reportable ABG HCO3 25.5 (19-31) mmol/L ABG O2 Saturation 99.5 H (95-98) % ABG Base Excess 0.7 (-2.0-2.0) Respiration Rate Not Reportable Ventilator Type Not Reportable Vent Mode Not Reportable FiO2 10 Inspiratory Time Not Reportable PEEP Not Reportable Pressure Support Not Reportable Pressure Control Not Reportable EPAP Not Reportable IPAP Not Reportable BiPAP Not Reportable Assess/Plan/Problems-Billing Assessment: This is a 42 year old female with history of morbid obesity that presented to the ER with c/o chest pain, and has had subsequesnt episodes of bradycardia, hypoxia and likely MASON. - Patient Problems (1) Chest pain Code(s): R07.9 - CHEST PAIN, UNSPECIFIED SNOMED Code(s): 04694953 Comment: - Atypical, concern that hypoventilatuion 2/2 body habitus contributing - trops negative, CTA chest negative, ECHO with no pathology - Dr. Ang and Dr. Hancock consults appreciated - Exercise stress today if patient can tolerate (has significant knee problems) - Would likely need holter monitor as an outpatient (2) MASON treated with BiPAP Code(s): G47.33 - OBSTRUCTIVE SLEEP APNEA (ADULT) (PEDIATRIC) SNOMED Code(s): 82291878 Comment: - Follow ABG, will need outpatient sleep study (3) HTN (hypertension) Code(s): I10 - ESSENTIAL (PRIMARY) HYPERTENSION SNOMED Code(s): 43223230 Comment: - Started on amlodipine (4) Hypothyroid Code(s): E03.9 - HYPOTHYROIDISM, UNSPECIFIED SNOMED Code(s): 51353559 Comment: - TSH 9+ 2 - Synthroid increased (5) Morbid obesity Code(s): E66.01 - MORBID (SEVERE) OBESITY DUE TO EXCESS CALORIES SNOMED Code(s ): 576929245 Comment: - BMI 66 - Discussed f/u with bariatric surgeon at discharge Status and Disposition: Will DC to home later today if stress negative. Will need home O2 and bipap. Counseling and/or Coordination of Care Minutes: coordinated with patient and staff
--- NOTE | 2017-11-08 15:57 | PN ---
Subjective Date of Service: 11/08/17 - CC: hollow feeling in chest Interval History: No new c/o. Medications Active Medications: Acetaminophen (Tylenol Tab*) 650 mg PO Q4H PRN PRN Reason: FEVER/PAIN Last Admin: 11/06/17 10:23 Dose: 650 mg Albuterol (Ventolin 2.5 Mg/3 Ml Neb.Juliana*) 2.5 mg INH Q2H PRN PRN Reason: SOB/WHEEZING Albuterol/Ipratropium (Duoneb (Albuterol 2.5 Mg/Ipratropium 0.5 Mg)) 1 neb INH Q4H PRN PRN Reason: SOB/WHEEZING Amlodipine Besylate (Norvasc Tab*) 5 mg PO DAILY [facility] Last Admin: 11/08/17 08:54 Dose: 5 mg Aspirin (Aspirin Low Dose Tab*) 81 mg PO DAILY [facility] Last Admin: 11/08/17 08:54 Dose: 81 mg Heparin Sodium (Porcine) (Heparin Vial(*)) 5,000 units SUBCUT Q8HR [facility] Last Admin: 11/08/17 05:55 Dose: 5,000 units Hydralazine HCl (Apresoline Iv*) 5 mg IV SLOW PU Q6H PRN PRN Reason: BLOOD PRESSURE Last Admin: 11/07/17 20:39 Dose: 5 mg Levothyroxine Sodium (Synthroid Tab*) 125 mcg PO DAILY@0600 [facility] Last Admin: 11/08/17 05:53 Dose: 125 mcg Mometasone Furoate/Formoterol Fumar (Dulera 200/5 Mdi*) 2 puff INH BID [facility] Last Admin: 11/08/17 10:23 Dose: 2 puff Omeprazole (Prilosec Cap*) 40 mg PO DAILY [facility] Last Admin: 11/08/17 08:54 Dose: 40 mg Ondansetron HCl (Zofran Inj*) 4 mg IV Q6H PRN PRN Reason: NAUSEA Prochlorperazine Edisylate (Compazine Inj*) 5 mg IV Q6H PRN PRN Reason: NAUSEA/VOMITING Last Admin: 11/05/17 21:58 Dose: 5 mg Topiramate (Topamax(*)) 50 mg PO BEDTIME [facility] Last Admin: 11/07/17 20:38 Dose: 50 mg Topiramate (Topamax(*)) 200 mg PO BEDTIME [facility] Last Admin: 11/07/17 20:38 Dose: 200 mg Objective Vital Signs: Temp Pulse Resp BP Pulse Ox 98.3 F 90 20 156/99 99 11/08/17 11:59 11/08/17 12:08 11/08/17 11:59 11/08/17 07:59 11/08/17 12:08 Note: no norvasc x 2 days. Oxygen Devices in Use Now: None, BiPAP Appearance: super mobidly obese, NAD. Eyes: No Scleral Icterus, PERRLA Ears/Nose/Mouth/Throat: NL Teeth, Lips, Gums, Clear Oropharnyx, Mucous Membranes Moist Neck: NL Appearance and Movements; NL JVP, Trachea Midline, No Thyroid Enlargement, Masses Respiratory: Symmetrical Chest Expansion and Respiratory Effort, Clear to Auscultation - distant from obeisity. Cardiovascular: NL Sounds; No Murmurs; No JVD, RRR, No Edema - active bowel sounds. Obesity limits exam. Extremities: No Edema Skin: No Rash or Ulcers Neurological: Alert and Oriented x 3, NL Gait, NL Muscle Strength and Tone Lines/Tubes/Other Access: Clean, Dry and Intact Peripheral IV Laboratory Results: 11/08/17 08:14 INR (Anticoag Therapy) 0.98 (0.77-1.02) 11/05/17 18:37 APTT 28.1 seconds (26.0-36.3) 11/05/17 18:37 Total Bilirubin 0.40 mg/dL (0.2-1.0) 11/05/17 18:37 AST 17 U/L (13-39) 11/05/17 18:37 ALT 23 U/L (7-52) 11/05/17 18:37 Alkaline Phosphatase 72 U/L (34-104) 11/05/17 18:37 CK-MB (CK-2) 1.6 ng/mL (0.6-6.3) 11/05/17 18:37 B-Natriuretic Peptide 108 pg/mL (-100) H 11/05/17 18:37 Total Protein 7.0 g/dL (6.4-8.9) 11/05/17 18:37 Albumin 3.7 g/dL (3.2-5.2) 11/05/17 18:37 Globulin 3.3 g/dL (2-4) 11/05/17 18:37 Albumin/Globulin Ratio 1.1 (1-3) 11/05/17 18:37 Triglycerides 161 mg/dL 11/06/17 04:49 Cholesterol 181 mg/dL 11/06/17 04:49 LDL Cholesterol 112 mg/dL 11/06/17 04:49 HDL Cholesterol 36.4 mg/dL 11/06/17 04:49 TSH 9.78 mcIU/mL (0.34-5.60) H 11/05/17 18:37 Laboratory Results - last 24 hr 11/06/17 11/08/17 11/08/17 04:49 08:14 12:55 WBC 8.7 RBC 4.58 Hgb 10.8 L Hct 35 MCV 77 L MCH 24 L MCHC 31 RDW 18 H Plt Count 183 MPV 8 Neut % (Auto) 75.7 Lymph % (Auto) 11.9 L [place] % (Auto) 7.6 H Eos % (Auto) 3.5 Baso % (Auto) 1.3 Absolute Neuts (auto) 6.6 Absolute Lymphs (auto) 1.0 Absolute Monos (auto) 0.7 Absolute Eos (auto) 0.3 Absolute Basos (auto) 0.1 Absolute Nucleated RBC 0 Nucleated RBC % 0.1 Patient Temperature Not Reportable ABG pH 7.40 ABG pH (Temp Correct) Not Reportable ABG pCO2 47 H ABG pCO2 (Temp Corrct Not Reportable ABG pO2 57 L* ABG pO2 (Temp Correct Not Reportable ABG HCO3 27.6 ABG O2 Saturation 93.7 L ABG Base Excess 3.6 H Respiration Rate Not Reportable Ventilator Type Not Reportable Vent Mode Not Reportable FiO2 21 Inspiratory Time Not Reportable PEEP Not Reportable Pressure Support Not Reportable Pressure Control Not Reportable EPAP Not Reportable IPAP Not Reportable BiPAP Not Reportable Lyme Disease Serology Negative EKG Data: Treadmill stress test today: Target HR achieved, no inducable ischemia by ECG criteria, hypertensive off amlodipine, ventricular bigeminy at peak (with HTN) and asymptomatic with this. Deconditioned, no bradycardia. Monitor: after stress test recurrent symptomatic episodes of sinus bradycardia. Per her nurse she was seated in bed, not in pain, had not had lunch. Improved/resolved by getting up and walking/moving. Assessment/Plan 42 yo female admitted with ED documentation of CP. Bradycardia in day time on monitor. Pt related to me a hollow feeling in chest and air hunger. Medical issues: morbid obesity and restrictive lung disease, abnormal PO2 on RA , probable MASON, hypothyroid disease, Fe+ deficiency anemia, undertreated. Anxiety, pain from knee injury. No evidence of life threatening cardiac issues based on Tele and stress test and echo and her normal Lyme titre is reassuring. Etiology of day time bradycardia still uncertain, I still suspect a vagal trigger. I don't feel a pacemaker is indicated at this time. OK from a cardiac standpoint to be discharged for out patient work up. Optimize diet, lifestyle and above medical issues. Cardiac follow up options include event monitor and/or f/u with me and/or follow up with obstetrical nurse.
[2017-11-08 19:41] VITALS: BP 158/100
--- NOTE | 2017-11-09 13:53 | DS ---
AMENDED REPORT NOW INCLUDES COSIGNER DESIGNATION - ESIGNED BEFORE ADJUSTMENT ADDENDUM: DISCHARGE SUMMARY: Addendum to discharge summary dictated by Dr. Spencer Miner. ATENDING PROVIDER: Dr. Miner * (DICTATED BY BETITO MORALES, JAMSHID) HOSPITAL COURSE/HISTORY OF PRESENT ILLNESS: The patient underwent exercise stress test with Dr. Sho Ang on 11/08/17. Patient did not have any acute ischemic changes during her stress test. Therefore, she was cleared for discharge by Dr. Sho Ang with outpatient followup with Dr. Ang; Dr. Hancock; and her primary care doctor, Dr. Villanueva. Still recommended that the patient remain on blood pressure medication and have outpatient follow up for sleep study and also potential for Holter monitor with Dr. Ang. BETITO MORALES NP [id number]/[facility] #: [id number] MTDKobi
== END 2017-11-08 16:00 | disposition home or self-care (01) | DRG 203 ==
LOC: ED 16:08 → MEDTELE 21:35 → OBSVTOIN 11-06 15:36
PROVIDERS: ADMIT Hospitalist; ATTEND Internal Medicine
DX: R07.89 Other chest pain (principal); E66.01 Morbid (severe) obesity due to excess calories; I49.5 Sick sinus syndrome; E87.2 Acidosis; Z68.44 Body mass index [BMI] 60.0-69.9, adult; J44.9 Chronic obstructive pulmonary disease, unspecified; I10 Essential (primary) hypertension; F41.9 Anxiety disorder, unspecified; D50.9 Iron deficiency anemia, unspecified; G43.909 Migraine, unspecified, not intractable, without status migrainosus; E03.9 Hypothyroidism, unspecified; K21.9 Gastro-esophageal reflux disease without esophagitis; G47.33 Obstructive sleep apnea (adult) (pediatric); R00.1 Bradycardia, unspecified; R09.02 Hypoxemia; Z79.1 Long term (current) use of non-steroidal anti-inflammatories (NSAID); Z79.899 Other long term (current) drug therapy; Z88.0 Allergy status to penicillin; Z88.8 Allergy status to other drugs, medicaments and biological substances; Z88.1 Allergy status to other antibiotic agents; Z91.040 Latex allergy status; Z82.3 Family history of stroke; Z82.49 Family history of ischemic heart disease and other diseases of the circulatory system
CPT/HCPCS: 36415; 36600; 70450; 71045; 71275; 80048; 80053; 80061; 81003; 81015; 82550; 82553; 82803; 83036; 83605; 83880; 84443; 84484; 84702; 85025; 85379; 85610; 85730; 86140; 86618; 87502; 90732; 93005; 93017; 93306; 94640; 94660; 94760; 99285; A9270-GY; C8929; J0360; J0780; J1642; J1644; J2270; J2405; J7512; Q9967

== ENCOUNTER 2019-04-05 11:56 | Emergency (ER) | payer BC ==
--- NOTE | 2019-04-05 12:09 | UC ---
Ear Complaint HPI - HPI Summary HPI Summary: funny feeling at entrance to right ear canal-has been park on for weeks---nurse at school flushed her ear - History of Current Complaint Chief Complaint: UCEar Stated Complaint: EAR ISSIUES Time Seen by Provider: 04/05/19 12:07 Hx Obtained From: Patient Hx Last Menstrual Period: 06/22/17 ?: No Onset/Duration: Sudden Onset, Lasting Weeks, Still Present Pain Intensity: 2 Pain Scale Used: 0-10 Numeric Aggravating Factors: Nothing Alleviating Factors: Nothing Associated Signs/Symptoms: Positive: Foreign Body Sensation - Allergies/Home Medications Allergies/Adverse Reactions: Allergies Allergy/AdvReac Type Severity Reaction Status Date / Time Adhesive Tape Allergy Severe Blisters Verified 07/07/17 16:33 ampicillin Allergy Intermediate Rash Verified 11/05/17 17:55 chlorhexidine Allergy Intermediate Blisters Verified 11/05/17 17:55 latex Allergy Intermediate Hives Verified 11/05/17 17:55 levofloxacin Allergy Intermediate Hives Verified 11/05/17 17:55 azithromycin Allergy Unknown Unknown Verified 11/05/17 17:56 Reaction Details Penicillins Allergy Unknown Unknown Verified 11/05/17 17:55 Reaction Details CHLOROPREP Allergy Severe Blisters Uncoded 07/07/17 16:33 PMH/Surg Hx/FS Hx/Imm Hx Previously Healthy: No Endocrine History: Hypothyroidism Cardiovascular History: Hypertension GI/ History: Gastroesophageal Reflux Neurological History: Migraine - Surgical History Surgical History: Yes Surgery Procedure, Year, and Place: RIGHT CHEST PORT, , BILATERAL ARTHROSCOPIC KNEE SURGERY FOR MENISCAL TEARS,FOOT SURGERY A CHILD - Family History Known Family History: Positive: None, Cardiac Disease - Mother had cardiac disease; sister had heart attack at 50 Family History: no reported cardiovascular issues in family lineage - Social History Occupation: Employed Full-time Lives: With Family Alcohol Use: Occasionally Substance Use Type: None Smoking Status (MU): Former Smoker - Immunization History Most Recent Influenza Vaccination: 2018 Most Recent Pneumonia Vaccination: never Review of Systems All Other Systems Reviewed And Are Negative: Yes Constitutional: Positive: Negative Skin: Positive: Negative Eyes: Positive: Negative ENT: Positive: Ear Ache - right ear "sensation" Respiratory: Positive: Negative Cardiovascular: Positive: Negative Gastrointestinal: Positive: Negative Genitourinary: Positive: Negative Motor: Positive: Negative Neurovascular: Positive: Negative Musculoskeletal: Positive: Negative Neurological: Positive: Negative Psychological: Positive: Negative Is Patient Immunocompromised?: No Physical Exam Triage Information Reviewed: Yes Appearance: Well-Appearing, No Pain Distress, Obese Vital Signs Reviewed: Yes Eye Exam: Normal Eyes: Positive: Conjunctiva Clear ENT Exam: Normal ENT: Positive: Normal ENT inspection, Hearing grossly normal, Pharynx normal, TMs normal, Other - no evidence of redness swelling fb in right ear canal. Negative: Nasal congestion, Tonsillar swelling, Trismus, Muffled voice, Hoarse voice Dental Exam: Normal Neck exam: Normal Neck: Positive: Supple, Nontender Respiratory Exam: Normal Respiratory: Positive: Chest non-tender, No respiratory distress, No accessory muscle use Cardiovascular Exam: Normal Cardiovascular: Positive: RRR, Pulses Normal, Brisk Capillary Refill Musculoskeletal Exam: Normal Musculoskeletal: Positive: Strength Intact, ROM Intact, No Edema Neurological Exam: Normal Neurological: Positive: Alert, Muscle Tone Normal Psychological Exam: Normal Skin Exam: Normal Ear Complaint Course/Dx - Course Course Of Treatment: warm compress tylenol/ibuprofen keep ear canal dry follow with pcp prn - Differential Dx/Diagnosis Provider Diagnosis: Ear pain, right Discharge - Sign-Out/Discharge Documenting (check all that apply): Patient Departure All imaging exams completed and their final reports reviewed: No Studies - Discharge Plan Condition: Stable Disposition: HOME Patient Education Materials: Warm Compress or Soak (ED), Ibuprofen (By mouth), Acetaminophen (By mouth) Referrals: Geneva Villanueva MD [Primary Care Provider] - If Needed - Billing Disposition and Condition Condition: STABLE Disposition: Home
[2019-04-05 12:33] VITALS: BP 117/72
== END 2019-04-05 12:40 | disposition home or self-care (01) ==
LOC: UCEAST 11:56
DX: H92.01 Otalgia, right ear (principal); I10 Essential (primary) hypertension; K21.9 Gastro-esophageal reflux disease without esophagitis; Z88.0 Allergy status to penicillin; Z91.040 Latex allergy status; Z87.891 Personal history of nicotine dependence; E03.9 Hypothyroidism, unspecified
CPT/HCPCS: 99211; G0463